=== PATIENT | female | born 1960 | race Caucasian/White ===

== ENCOUNTER 2019-05-14 17:00 | Outpatient (CLI) | payer OTHER, SELFPAY ==
--- NOTE | ~2019-05-14 | MM_ITS ---
EXAMINATION: MM screening [facility] BI w jayde HISTORY: Screening mammogram TECHNIQUE: Craniocaudal and mediolateral oblique 3-D tomosynthesis images were obtained and synthetic 2-D images were generated. CAD analysis was submitted and interpreted. COMPARISON: 10/31/2017, 10/27/2016, 08/26/2015 BREAST PARENCHYMAL COMPOSITION: There are scattered areas of fibroglandular density. FINDINGS: There is no evidence of suspicious mass, calcification, or architectural distortion to sugg est malignancy in either breast. There has been no suspicious interval change. IMPRESSION: 1. No mammographic evidence of malignancy. 2. Recommend routine screening mammography in one year. BI-RADS Category 1: Negative Reviewed, dictated and finalized at location A. IGN LANGUAGE PROFESSOR
== END 2019-05-14 17:01 | disposition home or self-care (01) ==
LOC: ANHIMG 17:04
PROVIDERS: PCP Internal Medicine; Visit Provider Student in an Organized Health Care Education/Training Program
DX: Z12.31 Encounter for screening mammogram for malignant neoplasm of breast (principal)
CPT/HCPCS: 77063; 77067

== ENCOUNTER 2020-09-30 16:16 | Outpatient (CLI) | payer BC, SELFPAY ==
--- NOTE | ~2020-09-30 | MM_ITS ---
EXAMINATION: MM screening [facility] w jayde HISTORY: Screening mammogram TECHNIQUE: Craniocaudal and mediolateral oblique 3-D tomosynthesis images were obtained and synthetic 2-D images were generated. CAD analysis was submitted and interpreted. COMPARISON: Numerous , 10/31/2017, 10/27/2016 bilateral digital screening mammogram examination s BREAST PARENCHYMAL COMPOSITION: There are scattered areas of fibroglandular density. FINDINGS: Stable mild fibroglandular asymmetry. Occasional bilateral benign calcifications. There is no evidence of suspicious mass, calcification, or architectural distortion to suggest malignancy in e ither breast. There has been no suspicious interval change. IMPRESSION: 1. No mammographic evidence of malignancy. 2. Recommend routine screening mammography in one year. BI-RADS Category 2: Benign finding(s). Reviewed, dictated and finalized at location A.
== END 2020-09-30 16:17 | disposition home or self-care (01) ==
LOC: ANHIMG 16:21
PROVIDERS: PCP Internal Medicine; Visit Provider Student in an Organized Health Care Education/Training Program
DX: Z12.31 Encounter for screening mammogram for malignant neoplasm of breast (principal)
CPT/HCPCS: 77063; 77067

== ENCOUNTER 2020-11-24 16:47 | Outpatient (CLI) | payer BC, SELFPAY ==
--- NOTE | ~2020-11-24 | DEXA_ITS ---
Bone Density Report Name: Polly Bacon Age: 60 Sex: Female Ethnicity: White Date of : 1960 Indication: postmenopausal; height loss; prior fracture; Referring Provider: Harmony Huffman Study: Bone densitometry was performed. Exam Date: November 24, 2020 Accession number: [id number] Bone Density: Region BMD T-score Z-score Classification AP Spine (L1-L4) 1.040 -0.1 1.3 Normal Femoral Neck (Left) 0.704 -1.3 0.0 Osteopenia Total Hip (Left) 0.948 0.1 1.0 Normal Total Hip Bilateral Avg 0.949 0.1 1.0 Normal Femoral Neck (Right) 0.729 -1.1 0.2 Osteopenia Total Hip (Right) 0.948 0.0 1.0 Normal World Health Organization criteria for BMD impression classify patients as: Normal (T-score at or above -1.0), Osteopenia (T-score between -1.0 and -2.5), or Osteoporosis (T-score at or below -2.5). 10-year Fracture Risk(1): Major Osteoporotic Fracture 13% Hip Fracture 0.9% Reported Risk Factors: [place] (), Neck BMD=0.704, BMI=29.9, previous fracture (1) FRAX(R) Version 3.08. Fracture probability calculated for an untreated patient. Fracture probability may be lower if the patient has received treatment. Previous Exams: Region Exam Age BMD T-score BMD Change BMD Change Date g/cm2 vs Baseline vs Previous Total Hip(Left) 11/24/2020 60 0.948 0.1 0.072(8.3%)* 0.052(5.8%)* 12/19/2016 56 0.897 -0.4 0.021(2.3%) 0.021(2.3%) 04/04/2014 54 0.876 -0.5 Total Hip(Right) 11/24/2020 60 0.948 0.0 0.076(8.8%)* 0.026(2.9%)# 12/19/2016 56 0.921 -0.2 0.050(5.7%)# 0.050(5.7%)# 04/04/2014 54 0.872 -0.6 *Denotes significance at 95% confidence level, LSC for Total Hip = 0.027 g/cm2 Clinical Information Provided by Patient: Has had a low trauma fracture Has used the following medications: HRT (i.e. estrogen/hormone therapy), Vitamin D, Calcium Patient maximum height was 67 Menopause Age: 52 No regular weight bearing exercise Drinks caffeinated beverages Onset of menses at age 14 Number of children 1 Impression: The patient has low bone mass, based on the Left Femoral Neck T-score. The patient has an estimated ten-year risk of hip fracture of 0.9% and an estimated ten-year risk of major fracture of 13%, based on the WHO FRAX algorithm. The patient has risk factors, including: previous fracture. No significant bone loss was observed. Discussion: BONE DENSITY IS LOW AT ONE OR MORE SKELETAL SITES. This patient's lowest T-score is low at one or more ske
== END 2020-11-24 16:48 | disposition home or self-care (01) ==
LOC: ANHIMG 16:49
PROVIDERS: PCP Internal Medicine; Visit Provider Student in an Organized Health Care Education/Training Program
DX: Z78.0 Asymptomatic menopausal state (principal); M85.851 Other specified disorders of bone density and structure, right thigh; M85.852 Other specified disorders of bone density and structure, left thigh
CPT/HCPCS: 77080

== ENCOUNTER 2022-05-03 16:41 | Outpatient (CLI) | payer BC, SELFPAY ==
--- NOTE | ~2022-05-03 | MM_ITS ---
EXAMINATION: MM screening [facility] w jayde HISTORY: Screening mammogram TECHNIQUE: Craniocaudal and mediolateral oblique 3-D tomosynthesis images were obtained and synthetic 2-D images were generated. CAD analysis was submitted and interpreted. COMPARISON: 09/30/2020, , 10/31/2017 bilateral screening mammogram examinations BREAST PARENCHYMAL COMPOSITION: There are scattered areas of fibroglandular density. FINDINGS: Minimal stable fibroglandular asymmetry consistent with prior bilateral reduction mammoplas ty. There is no evidence of suspicious mass, calcification, or architectural distortion to suggest ma lignancy in either breast. There has been no suspicious interval change. IMPRESSION: 1. No mammographic evidence of malignancy. 2. Recommend routine screening mammography in one year. BI-RADS Category 2: Benign finding(s). Reviewed, dictated and finalized at location A. CATION ADMINISTRATION PROFESSIONAL
== END 2022-05-03 16:42 | disposition home or self-care (01) ==
PROVIDERS: PCP Internal Medicine; Visit Provider Obstetrics & Gynecology
DX: Z12.31 Encounter for screening mammogram for malignant neoplasm of breast (principal)
CPT/HCPCS: 77063; 77067

== ENCOUNTER 2023-05-04 08:02 | Emergency (ER) | payer OTHER, SELFPAY ==
--- NOTE | 2023-05-04 08:10 | ED.URI ---
HPI - URI/Sore Throat General Chief Complaint: Upper Respiratory Infection Stated Complaint: cough Time Seen by Provider: 05/04/23 08:20 Source: patient, RN notes reviewed and old records reviewed Mode of arrival: ambulatory Limitations: no limitations History of Present Illness HPI Narrative: 63-year-old female presents to the [facility] with complaints of a cough for 7 weeks. No treatment prior Denies any chest pain, shortness of breath. Denies any fevers. Denies any URI symptoms at the beginning. MD elicited complaint: cough Treatments prior to arrival: none Related Data Home Medications Medication Instructions Recorded Confirmed estradiol 1 mg tablet 1 mg PO DAILY 04/11/19 11/10/22 melatonin 5 mg capsule mg PO 04/11/19 11/10/22 prasterone (dhea) 25 mg tablet 25 mg PO DAILY 04/11/19 11/10/22 (DHEA) progesterone micronized 100 mg 100 mg PO QAM 04/11/19 11/10/22 capsule testosterone 50 mg/5 gram (1 %) 1 packet transdermal DAILY 04/11/19 11/10/22 transdermal gel thyroid (pork) 48.75 mg tablet 48.75 mg PO DAILY 11/10/22 11/10/22 Allergies Allergy/AdvReac Type Severity Reaction Status Date / Time No Known Allergies Allergy Verified 05/04/23 08:21 Review of Systems Review of Systems: All systems reviewed & are unremarkable except as noted in HPI and below Constitutional: Constitutional: Reports no additional constitutional complaints Eyes: Eyes: Reports no additional eye complaints ENT: Reports system reviewed and no additional complaints, except as documented Cardiovascular: Cardiovascular: Reports no additional cardiovascular complaints, Denies chest pain and Denies dyspnea Respiratory: Respiratory: Reports as per HPI, Denies chest congestion, Reports cough and Denies dyspnea Gastrointestinal: Gastrointestinal: Reports no additional gastrointestinal complaints, Denies abdominal pain, Denies nausea and Denies vomiting Musculoskeletal: Musculoskeletal: Reports no additional musculoskeletal complaints Integumentary/Breasts: Skin/Breast: Reports system reviewed and no additional complaints, except as docu Neurologic: Reports system reviewed and no additional complaints, except as documented Psychiatric: Psychiatric: Reports no additional psychiatric complaints Allergic/Immunologic: Allergic/Immunologic: Reports no additional allergic/immunologic complaints PMFSH Past Medical History Medical History Elevated lipids Surgical History Surgical History History of bilateral breast reduction surgery History of section Family History Family History Other Family history of malignant neoplasm of ovary Family history of pancreatic cancer Social History Social History Smoking status: Never smoker Second hand tobacco smoke exposure: No Alcohol intake: current Substance use: never Lack of Transportation: No Lack of Food: Never True Current Housing: I Have Housing Concerned About Future Housing: No Difficulty Paying Gas/Electric Bills: No Difficulty Paying for Meds: No Currently Unemployed: No Education: Associate Degree Living arrangements: with family Occupation/Education: occupation Gender identity (if verbalized by the patient): Female Sexual Orientation (if Verbalized by the Patient): Straight or Heterosexual Spiritual care concerns: No Comments At the time of my signature, I reviewed and agree with the nursing past medical, surgical, social, and family history. There is no relevant family history pertinent to the patient complaint. Exam Const: General: cooperative, healthy appearing, comfortable, no acute distress, well developed, alert and well nourished Nutritional Appearance: well nourished Orientation/consciousness: pat
[2023-05-04 08:21] VITALS: BP 130/68; PULSE 85; RESP 18; TEMP 36.9; O2SAT 97
== END 2023-05-04 08:40 | disposition home or self-care (01) ==
PROVIDERS: Emergency Provider Nurse Practitioner
DX: J40 Bronchitis, not specified as acute or chronic (principal)
CPT/HCPCS: 99213; G0463

== ENCOUNTER 2024-01-11 08:17 | Outpatient (CLI) | payer OTHER, SELFPAY ==
--- NOTE | ~2024-01-11 | MM_ITS ---
EXAMINATION: MM screening [facility] w jayde HISTORY: Screening TECHNIQUE: Craniocaudal and mediolateral oblique 3-D tomosynthesis images were obtained and synthetic 2-D images were generated. CAD analysis was submitted and interpreted. COMPARISON: Comparison to multiple prior studies sequentially, with oldest reviewed study dated 03/2015. BREAST PARENCHYMAL COMPOSITION: Not dense: There are scattered areas of fibroglandular density. FINDINGS: There is no evidence of suspicious mass, calcification, or architectural distortion to sugg est malignancy in either breast. There has been no suspicious interval change. IMPRESSION: 1. No mammographic evidence of malignancy. 2. Recommend routine screening mammography in one year. BI-RADS Category 1: Negative Reviewed, dictated and finalized at location B.
== END 2024-01-11 08:18 | disposition home or self-care (01) ==
PROVIDERS: PCP Family Medicine; Visit Provider Obstetrics & Gynecology
DX: Z12.31 Encounter for screening mammogram for malignant neoplasm of breast (principal)
CPT/HCPCS: 77063; 77067

== ENCOUNTER 2024-01-22 12:59 | Outpatient (CLI) | payer OTHER, SELFPAY ==
--- NOTE | ~2024-01-22 | DEXA_ITS ---
Bone Density Report Name: ROSE URIBE Age: 63 Sex: Female Ethnicity: White Date of : 1960 Indication: postmenopausal; screening for osteoporosis; height loss; Referring Provider: YANET GONZALEZ Study: Bone densitometry was performed. Exam Date: January 22, 2024 Accession number: [id number] Bone Density: Region BMD T-score Z-score Classification AP Spine(L1-L4) 1.007 -0.4 1.2 Normal Femoral Neck (Left) 0.678 -1.5 -0.1 Osteopenia Total Hip (Left) 0.883 -0.5 0.6 Normal Femoral Neck (Right) 0.709 -1.3 0.1 Osteopenia Total Hip (Right) 0.871 -0.6 0.5 Normal Total Hip Mean 0.877 -0.6 0.6 Normal World Health Organization criteria for BMD impression classify patients as: Normal (T-score at or above -1.0), Osteopenia (T-score between -1.0 and -2.5), or Osteoporosis (T-score at or below -2.5). 10-year Fracture Risk(1): Major Osteoporotic Fracture 8.5% Hip Fracture 0.8% Reported Risk Factors: [place] (), Neck BMD=0.678, BMI=28.2 (1) FRAX(R) Version 3.08. Fracture probability calculated for an untreated patient. Fracture probability may be lower if the patient has received treatment. Previous Exams: Region Exam Age BMD T-score BMD Change BMD Change Date g/cm2 vs Baseline vs Previous AP Spine (L1-L4) 01/22/2024 63 1.007 -0.4 -0.033 (-3.1%) -0.033 (-3.1%) 11/24/2020 60 1.040 -0.1 Total Hip(Left) 01/22/2024 63 0.883 -0.5 -0.013 (-1.5%) -0.065 (-6.9%) 11/24/2020 60 0.948 0.1 0.052 (5.8%)* 0.052 (5.8%)* 12/19/2016 56 0.897 -0.4 Total Hip(Right) 01/22/2024 63 0.871 -0.6 -0.050 (-5.4%) -0.077 (-8.1%) 11/24/2020 60 0.948 0.0 0.026 (2.9%)# 0.026 (2.9%)# 12/19/2016 56 0.921 -0.2 *Denotes significance at 95% confidence level, LSC for AP Spine = 0.022 g/cm2, LSC for Total Hip = 0.027 g/cm2 # Denotes dissimilar scan types or analysis methods Clinical Information Provided by Patient: Has used the following medications: HRT (i.e. estrogen/hormone therapy), Vitamin D, Calcium Patient maximum height was 67.0 Menopause Age: 52 Does not regularly consume dairy products Drinks caffeinated beverages Onset of menses at age 14 Number of children 1 Impression: The patient has low bone mass, based on the Left Femoral Neck T-score. The patient has an estimated ten-year risk of hip fracture of 0.8% and an estimated ten-year risk of major fracture of 8.5%, based on the WHO FRAX algorithm. The BMD for the AP Spine (L1-L4) decreased, changing by -3.1% since the last DXA exam. The BMD for the Total Hip(Left) decreased, changing by -6.9% since the last DXA exam. Discussion: BONE DENSITY IS LOW AT ONE OR MORE SKELETAL SITES. This patient's lowest T-score is low at one or more skeletal sites. It meets the World Health Organization's (WHO) criteria for ?low bone mass? (T-score between -1.0 and -2.5). The patient's 10-year risk of fracture as calculated by FRAX is less than the threshold where pharmacological therapy is recommended by the National Osteoporosis Foundation (NOF). However, all treatment decisions require clinical judgment and consideration of individual patient factors, including patient preferences, comorbidities, previous drug use, risk factors not captured in the FRAX model (e.g., frailty, falls, vitamin D deficiency, increased bone turnover, interval significant decline in bone density) and possible under or overestimation of fracture risk by FRAX. The patient should follow a healthful lifestyle (good nutrition with adequate calcium and vitamin D, and appropriate weight-bearing exercise). Follow-Up: Consider repeating this study in 2 years to reassess this patient's status, or sooner if there is some new clinical indication. Reported by: SAYRA on 01/22/2024 1:42:00 PM. Reviewed, dictated and finalized at location AShad GÓMEZ
== END 2024-01-22 13:00 | disposition home or self-care (01) ==
LOC: ANHIMG 13:02
PROVIDERS: PCP Family Medicine; Visit Provider Obstetrics & Gynecology
DX: Z78.0 Asymptomatic menopausal state (principal); M85.852 Other specified disorders of bone density and structure, left thigh; M85.851 Other specified disorders of bone density and structure, right thigh
CPT/HCPCS: 77080

== ENCOUNTER 2024-04-10 08:30 | Emergency (ER) | payer OTHER, SELFPAY ==
--- NOTE | ~2024-04-10 | XR_ITS ---
EXAMINATION: XR shoulder RT min 2V DATE: 04/10/2024 09:17 INDICATION: Right shoulder injury post fall TECHNIQUE: AP internally and externally rotated, AP oblique externally rotated and transscapular Y vi ews of the right shoulder were obtained. COMPARISON: None FINDINGS: Normal alignment. No fracture at the right shoulder. There is a subtle irregular cortical contour al ellie the anterolateral right sixth rib which could represent an age-indeterminate fracture. Mild right acromioclavicular and glenohumeral osteoarthritis. Soft tissues are unremarkable. Visualized portio n of the lungs are clear with no pleural effusion or pneumothorax. IMPRESSION: 1. Mild right glenohumeral and acromial clavicular osteoarthritis with no acute osseous abnormality t he right shoulder. 2. Possible age-indeterminate fracture of the anterolateral right sixth rib. Correlate for point tend erness at this location. Reviewed, dictated and finalized at location B. MOUNTER IMPRESSION: 1. Mild right glenohumeral and acromial clavicular osteoarthritis with no acute osseous abnormality the right shoulder. 2. Possible age-indeterminate fracture of the anterolateral right sixth rib. Co rrelate for point tenderness at this location.
--- NOTE | ~2024-04-10 | CT_ITS ---
EXAMINATION: CT cervical spine wo con DATE: 04/10/2024 09:11 INDICATION: Neck injury post fall TECHNIQUE: Computed tomography (CT) of the cervical spine was performed without intravenous contrast. Automated exposure control and iterative reconstruction technique were employed. The dose-length pro duct was 340.88 mGy-cm. COMPARISON: None FINDINGS: Alignment is normal. Vertebral body heights are normal. No fracture. Mild osteoarthritis at the atlan toaxial articulation. Moderate disc height loss at C5-C6. Mild disc height loss at C3-C4 and C6-C7. M oderate to severe uncovertebral osteoarthritis and posterior disc osteophyte complexes which contribu te to mild central canal and bilateral neural foraminal stenosis at each of these levels. Multilevel mild to moderate bilateral cervical facet osteoarthritis. Mild bilateral neural foraminal stenosis at the 3 previously described levels. Cervical soft tissues are unremarkable. The visualized apices of the lungs are clear. IMPRESSION: 1. Moderate cervical spondylosis. No acute osseous abnormality. Reviewed, dictated and finalized at location B. N STOCK WASHER
--- NOTE | ~2024-04-10 | XR_ITS ---
EXAMINATION: XR elbow RT 2V DATE: 04/10/2024 09:48 INDICATION: Limited range of motion at the right elbow post fall TECHNIQUE: Anteroposterior and lateral views of the right elbow were obtained. COMPARISON: None. FINDINGS: Alignment is normal. No fracture or joint effusion. Joint spaces are normal. Small enthesophytes at t he medial and lateral epicondylar origins of the common flexor and extensor tendon wads respectively. Soft tissues are otherwise unremarkable. IMPRESSION: 1. No right elbow joint effusion or acute osseous abnormality. Reviewed, dictated and finalized at location B. MERCHANT
--- NOTE | ~2024-04-10 | CT_ITS ---
CT brain wo con Ordering provider: Jericho Santa History: 64 years Female with . fall/ injury . Comparison: None. Technique: CT of the head without contrast. Radiation reduction technique utilized. The dose-length product was 605.33 mGy-cm. FINDINGS: BRAIN PARENCHYMA AND CSF SPACES: No midline shift, mass effect or hemorrhage. The brain parenchyma a nd CSF spaces are otherwise normal. VISUALIZED PARANASAL SINUSES: Well aerated. MASTOIDS: Well aerated. BONES: The bones appear intact. SOFT TISSUES: Visualized nasopharynx is normal. Superficial soft tissues are normal. IMPRESSION: No acute intracranial findings. Reviewed, dictated and finalized at location A. S AND SERVICE ENGINEER
[2024-04-10 08:46] VITALS: BP 96/65; PULSE 60; RESP 17; TEMP 36.5; O2SAT 100
--- NOTE | 2024-04-10 09:32 | ED_ITS ---
HPI - Fall General Chief Complaint: Fall Stated Complaint: fall, hit head, R shoulder pain Time Seen by Provider: 04/10/24 09:07 History of Present Illness HPI Narrative: 64-year-old female presents to the ED with at bedside for a ground level mechanical fall that occurred prior to arrival. Patient states she slipped on ice this morning, landed on her right shoulder and elbow and hit her right eyebrow on the ground. She did not lose consciousness. She is not anticoagulated. She is reporting pain to the right shoulder and elbow and mildly to her neck. She has not taken anything for pain. Denies other injuries. Related Data Allergies Allergy/AdvReac Type Severity Reaction Status Date / Time No Known Allergies Allergy Verified 04/10/24 08:50 Review of Systems Review of Systems: All systems reviewed & are unremarkable except as noted in HPI and below PMFSH Past Medical History Medical History Colon polyp Osteopenia Elevated lipids Surgical History Surgical History H/O vein stripping History of section History of bilateral breast reduction surgery Family History Family History Other Family history of malignant neoplasm of ovary Family history of pancreatic cancer Social History Social History Smoking status: Never smoker Second hand tobacco smoke exposure: No Alcohol intake: current Substance use: never Lack of Transportation: No Lack of Food: Never True Current Housing: I Have Housing Concerned About Future Housing: No Difficulty Paying Gas/Electric Bills: No Difficulty Paying for Meds: No Currently Unemployed: No Education: Associate Degree Living arrangements: with family Occupation/Education: occupation Gender identity (if verbalized by the patient): Female Sexual Orientation (if Verbalized by the Patient): Straight or Heterosexual Spiritual care concerns: No Exam Narrative: GENERAL: Well-appearing, well-nourished, and in no acute distress. HEAD: Normocephalic EYES: PERRLA and EOMI. ENT: Nares clear, no rhinorrhea or epistaxis. Mucous membranes moist. NECK: Minimal tenderness throughout the cervical spine with no crepitus, step- offs or deformities BACK: No midline thoracolumbar spinous tenderness, crepitus, step-offs or deformities CHEST: Clear to auscultation. No respiratory distress. No tenderness to chest wall HEART: Regular rate and rhythm. No murmur heard. Normal peripheral pulses. ABDOMEN: Soft, nontender, nondistended, normal active bowel sounds. EXTREMITIES: Diffuse tenderness to the proximal right humerus with no overlying skin changes, limited anterior flexion, abduction and internal rotation secondary to pain, no obvious deformity, compartments are soft. Minimal tenderness diffusely to the right elbow with full active and passive range of motion. No tenderness remainder of extremity. Radial, median, axillary and ulnar nerves are intact. Radial pulse 2 +. No tenderness to BLE SKIN: Hematoma to the right eyebrow with tenderness NEURO: No focal deficits. Alert and oriented x3. Strength 5/5 in BUE and BLE. Sensation intact throughout. Cranial nerves 2-12 intact. Course Vital Signs Vital signs: Vital Signs Temperature 97.7 F 04/10/24 08:46 Pulse Rate 60 04/10/24 08:46 Respiratory Rate 17 04/10/24 08:46 Blood Pressure 96/65 L 04/10/24 08:46 Pulse Oximetry 100 04/10/24 08:46 Oxygen Delivery Room Air 04/10/24 08:46 Temperature 97.6 F 04/10/24 10:40 Pulse Rate 76 04/10/24 10:40 Respiratory Rate 16 04/10/24 10:40 Blood Pressure 110/68 04/10/24 10:40 Pulse Oximetry 100 04/10/24 10:40 Oxygen Delivery Room Air 04/10/24 08:46 MDM - Fall MDM Narrative Medical decision making narrative: 64-year-old female presents to the ED for a ground level mechanical fall that occurred prior to arrival. See HPI for further history. Exam is significant for the above. Patient is neurovascularly intact. CT brain shows no acute intracranial findings. CT cervical spine shows moderate cervical spondylosis with no acute osseous abnormality. X-ray of the shoulder shows mild right glenohumeral and acromioclavicular osteoarthritis with no acute osseous findings of the shoulder. There is possible age-indeterminate fracture of the anterior lateral right 6th rib. Patient has no tenderness over this region. X-ray of the elbow is unremarkable. Patient and at bedside were updated on workup. She is reporting significant right shoulder pain. She received Tylenol was placed in a right arm splint. Discussed supportive care and prevention of adhesive capsulitis, Tylenol/ibuprofen, Flexeril lidocaine patches for pain and follow-up with Orthopedics if her right shoulder is not improving in a week as she may need further workup and possible MRI for ligamentous injury. Return precautions provided. They are agreeable with the plan verbalized understanding. Discharged in stable condition. Discharge Plan Discharge Clinical Impression: Right shoulder strain Qualifiers: Encounter type: initial encounter Qualified Code(s): S46.911A - Strain of unspecified muscle, fascia and tendon at shoulder and upper arm level, right arm, initial encounter Strain of elbow, right Qualifiers: Encounter type: initial encounter Qualified Code(s): S56.911A - Strain of unspecified muscles, fascia and tendons at forearm level, right arm, initial encounter Acute cervical myofascial strain Qualifiers: Encounter type: initial encounter Qualified Code(s): S16.1XXA - Strain of muscle, fascia and tendon at neck level, initial encounter Contusion of eyebrow Qualifiers: Encounter type: initial encounter Laterality: right Qualified Code(s): S00.11XA - Contusion of right eyelid and periocular area, initial encounter Patient Disposition: Home, Self-Care Condition: Stable Instructions: Antibiotic Form, Head Injury (ED), Shoulder Pain (ED), Rotator Cuff Injury Exercises (DC) Additional Instructions: Please rest, use ice and make sure to move your shoulder few times throughout the day to prevent frozen shoulder as discussed. Take medications as directed. Follow-up with the orthopedic surgeon if your pain persists for 1 week. Return to the emergency department if he develops significantly worsening pain, numbness in the remainder of the extremity, or other concerning symptoms. Patient Language: Citizen Of [place] Prescriptions: New ibuprofen 800 mg tablet 800 mg PO TID PRN (Reason: pain) Qty: 20 0RF lidocaine 5 % adhesive patch,medicated 1 patch topical DAILY Qty: 15 0RF Rx Instructions: leave on most painful area for up to 12 hrs. do not use more than 1 patch in a 24-hour period. cyclobenzaprine 10 mg tablet 10 mg PO TID PRN (Reason: muscle spasm) Qty: 14 0RF acetaminophen 500 mg capsule 500 mg PO Q6H PRN (Reason: pain) Qty: 20 0RF No Action fluconazole [Diflucan] 200 mg tablet 200 mg PO ONCE Qty: 2 0RF Rx Instructions: repeat in three days nystatin-triamcinolone 100,000-0.1 unit/gram-% ointment 1 applic topical TID PRN (Reason: yeast rash) Qty: 60 0RF phentermine 30 mg capsule 30 mg PO DAILY Qty: 30 1RF Rx Instructions: must administer 2 hours after breakfast rosuvastatin 5 mg tablet 5 mg PO DAILY Qty: 30 2RF Follow-up/Referrals: Felicity Sow MD [Primary Care Provider] - Jose Carlos Pedroza MD [Physician] - Stand Alone Forms: Work/School Release IP
[2024-04-10] MEDS: ACETAMINOPHEN 500 MG TABLET 1000 MG PO (09:54)
[2024-04-10 10:29] VITALS: BP 105/91; PULSE 64
[2024-04-10] MEDS: CYCLOBENZAPRINE HCL 10 MG TABLET PO (10:32)
[2024-04-10] MEDS: LIDOCAINE 5% PATCH 1 PATCH TRANSDERM (10:33)
[2024-04-10 10:40] VITALS: BP 110/68; PULSE 76; RESP 16; TEMP 36.4; O2SAT 100
== END 2024-04-10 10:40 | disposition home or self-care (01) ==
PROVIDERS: Emergency Provider Physician Assistant; PCP Family Medicine
DX: S46.911A Strain of unspecified muscle, fascia and tendon at shoulder and upper arm level, right arm, initial encounter (principal); S56.911A Strain of unspecified muscles, fascia and tendons at forearm level, right arm, initial encounter; S16.1XXA Strain of muscle, fascia and tendon at neck level, initial encounter; S00.11XA Contusion of right eyelid and periocular area, initial encounter; W00.0XXA Fall on same level due to ice and snow, initial encounter
CPT/HCPCS: 70450; 72125; 73030; 73070; 99284; A4565; A9270

== ENCOUNTER 2024-04-25 09:43 | Outpatient (CLI) | payer OTHER, SELFPAY ==
--- NOTE | ~2024-04-25 | MR_ITS ---
EXAMINATION: MR shoulder RT wo con DATE: 04/25/2024 10:29 INDICATION: Unspecified injury of muscle and tendon positioned with right shoulder pain post fall 2 w eeks prior. TECHNIQUE: Magnetic resonance imaging (MRI) of the right shoulder was performed without intravenous c ontrast. Sequences included axial PD-weighted FS FSE, coronal oblique PD-weighted FS FSE, coronal obl ique T2-weighted FS FSE, sagittal PD-weighted FS FSE, and sagittal T1-weighted SE. COMPARISON: None. FINDINGS: Coracoacromial arch: The acromion undersurface is flat in morphology (type I). The coracoacromial ligament is normal. Mild acromioclavicular osteoarthritis. Rotator cuff: Moderate supraspinatus and severe infraspinatus tendinopathy. There is a full-thickness tear along th e superior and middle facet footplates of the supraspinatus and conjoined portion of the supraspinatu s and infraspinatus tendons. The tear measures approximately 2.5 cm AP along the greater tuberosity a nd 2.5 cm medial to lateral. The teres minor tendon is normal. Mild subscapularis tendinopathy withou t tear. Normal rotator cuff muscle bulk and signal. Biceps tendon, glenoid labrum and glenohumeral cartilage: Long head of the biceps tendon is normal. There is a small shallow tear along the articular side of t he 11:00 position of the posterior superior glenoid labrum. Glenohumeral cartilage is normal. Fluid: Small glenohumeral joint effusion which extends through the full-thickness rotator cuff tear to indic ate with a small amount fluid in the subacromial/subdeltoid bursa. No loose osteochondral bodies. Bones: Normal marrow signal with no edema, fracture or abnormal marrow replacing process. IMPRESSION: 1. Moderate to severe supraspinatus and displaced tendinopathy with moderate-sized full-thickness tea r of the entire supraspinatus and conjoined portion of the supraspinatus and infraspinatus tendons. 2. Very small shallow tear at the posterior superior glenoid labrum. Reviewed, dictated and finalized at location B. R DEALER IMPRESSION: 1. Moderate to severe supraspinatus and displaced tendinopathy with moderate-si zed full-thickness tear of the entire supraspinatus and conjoined portion of th e supraspinatus and infraspinatus tendons. 2. Very small shallow tear at the posterior superior glenoid labrum.
== END 2024-04-25 09:44 | disposition home or self-care (01) ==
LOC: MICIMG 09:44
PROVIDERS: PCP Family Medicine; Visit Provider Family Medicine
DX: S46.009A Unspecified injury of muscle(s) and tendon(s) of the rotator cuff of unspecified shoulder, initial encounter (principal); X58.XXXA Exposure to other specified factors, initial encounter; M75.101 Unspecified rotator cuff tear or rupture of right shoulder, not specified as traumatic
CPT/HCPCS: 73221

== ENCOUNTER 2024-05-10 10:59 | Outpatient (CLI) | payer OTHER, SELFPAY ==
--- OUTSIDE RECORDS SUMMARY | 2024-05-10 11:20 | XMS_ITS | Clinical Summary ---
Author Organization [facility] Address [address] [place] [address] Care Team Providers Care Stereotype Molder Name Role Phone Referral, Self Primary Care Provider Unavailabl e Allergies No known active allergies Medications calcium citrate/vitamin D3 (CITRACAL + D ORAL) Take 2 tablets by mouth every morning Active multivitamin with minerals capsule Take 3 capsules by mouth every morning Active phentermine 30 mg capsule Take 1 capsule (30 mg total) by mouth daily 08/01/2023 Active Active Problems Problem Noted Date Diagnosed Date Aftercare following surgery of the circulatory s ystem 08/03/2023 Varicose veins of both lower extremities with pa in 06/27/2023 Immunizations Name Administration Dates Next Due Influenza, Quadrivalent, Spl it, Preservative Free, Intramuscular 01/24/2023,12/22/2018 Tdap 02/07/2014 Surgical History Surgery Date Site/Laterality Comments SECTION 03/27/1983 - 03/26/1984 REDUCTION MAMMOPLASTY 03/27/1981 - 03/26/1982 Bilateral VEIN LIGATION 03/27/2012 - 03/26/2013 Medical History Medical History Date Comments Motion sickness Family History Medical History Relation Name Comments Anesthesia problems Neg Hx Social History Tobacco Use Types Packs/Day Years Used Date Smoking Tobacco: Never Passive Smoke Exposure: Never Smokeless Tobacco: Never AUDIT-C Answer Date Recorded Q1: How often do you have a drink containing alc ohol? Monthly or less 06/28/2023 Q2: How many drinks containi ng alcohol do you have on a typical day when you are drinking? 1 or 2 06/28/2023 Q3: How often do you have si x or more drinks on one occasion? Never 06/28/2023 Personal Safety Answer Date Recorded Have you ever been in or are you currently in a harmful physical or emotional relationship or is someone making you feel afraid or unsafe? Denies 07/28/2023 Comments No Sex and Gender Information Value Date Recorded Sex Assigned at Not on file Legal Sex Female 9:56 AM INTERPRETER AND TRANSLATOR Gender Identity Not on file Sexual Orientation Not on file Obstetrics History Last Filed Vital Signs Vital Sign Reading Time Taken Comments Blood Pressure 117/79 08/23/2023 2:56 PM CDT Pulse 92 08/23/2023 2:56 PM CDT Temperature 36.9 C (98.5 F) 08/23/2023 2:56 PM CDT Respiratory Rate 18 07/28/2023 3:25 PM CDT Oxygen Saturation 98% 08/23/2023 2:56 PM CDT Inhaled Oxygen Concentration - - Weight 80.2 kg (176 lb 12.8 oz) 08/23/2023 2:56 PM CDT Height 170.2 cm (5' 7 ) 08/23/2023 2:56 PM CDT Body Mass Index 27.69 08/23/2023 2:56 PM CDT Plan of Treatment Health Maintenance Due Date Last Done Comments Breast Cancer Screening-Mammogram 1961 Cervical Cancer Screening 1961 Colon Cancer Screening-Colonoscopy 1961 Depression Screening 1961 Hepatitis C Screening 1961 Hepatitis B Screening 1979 Regular Well Visit/Exam 18-64 1979 Zoster Vaccine (1 of 2) 2011 Covid-19 Vaccine ( season) 2023 02/26/2023, 03/11/2022, 10/08/2021, Additional history exists Influenza Vaccine (#1) 2023 01/24/2023, 2018 DTaP/Tdap/Td Vaccine (2 - Td or Tdap) 02/08/2024 02/07/2014 Pneumococcal vaccine <65 Aged Out No longer eligible based on patient's age to complete this topic Insurance [facility] PPO [facility] PPO Care Teams Stereotype Molder Relationship Specialty Start Date End Date Referral, Self PCP - General 04/24/23
--- OUTSIDE RECORDS SUMMARY | 2024-05-10 11:20 | XMS_ITS | Encounter Summary ---
Author Organization [facility] Address [address] [place] [address] Care Team Providers Care Flooring Machine Feeder Name Role Phone Unavailable Primary Care Provider Unavailabl e Encounter Details Date Type Department Care Team (Late st Contact Info) Description 05/30/2018 Lab Requisition [facility] Care DermPath Lab [address] [facility] [place] [address] Froy Reese MD [address] [place] [address] Social History Tobacco Use Types Packs/Day Years Used Date Smoking Tobacco: Never Assessed Sex and Gender Information Value Date Recorded Sex Assigned at Not on file Gender Identity Not on file Sexual Orientation Not on file documented as of this encounter Plan of Treatment Not on file documented as of this encounter Procedures Procedure Name Priority Date/Time Associated Diagnosis Comments DERMATOPATHOLOGY Routine 05/29/2018 12:0 0 AM ADDRESSER documented in this encounter Results * DERMATOPATHOLOGY (05/29/2018 12:00 AM ADDRESSER) Case Report Dermatopathology Report Case: [id number] Authorizing Provider: Froy Reese MD Collected: 05/29/2018 12:00 AM Pathologist: Regina Denton MD Received: 05/30/2018 11:46 AM Specimens: A) - Skin, left sup ant thigh B) - Skin, left lower ant thigh 9 1:37 PM ADDRESSER DERMATOPATHOLOGY LABORATORY Final Diagnosis Specimen A. SKIN, left sup ant thigh: LICHEN PLANUS-LIKE KERATOSIS (BENIGN LICHENOID KERATOSIS) (L82.1) Specimen B. SKIN, left lower ant thigh: SOLAR LENTIGO (L81.4) 1:37 PM [facility] DERMATOPATHOLOGY LABORATORY Clinical History A: R/O HAK, Madden's. B: R/O dys nevus, ISK. 1:37 PM [facility] DERMATOPATHOLOGY LABORATORY Gross Description Specimen A: Received is one formalin filled container labeled with the patient's name and designated left sup ant thigh. The specimen consists of a shave biopsy measuring [id number]. Jar 0. Specimen B: Received is one formalin filled container labeled with the patient's name and designated left lower ant thigh. The specimen consists of a shave biopsy measuring [id number]. Jar 0. 1:37 PM [facility] DERMATOPATHOLOGY LABORATORY Microscopic Description Specimen A. SKIN, left sup ant thigh: The epidermis is mildly acanthotic. There is a lichenoid infiltrate with vacuolar changes of basilar keratinocytes and scattered necrotic keratinocytes. Specimen B. SKIN, left lower ant thigh: There is orthokeratosis. There is a slight increase in epidermal thickness with lentiginous buds of hyperpigmented keratinocytes. The number of melanocytes is only mildly increased. In the dermis, there is basophilic degeneration of elastic fibers. 1:37 PM [facility] DERMATOPATHOLOGY LABORATORY Disclaimer An external and internal positive and negative controls are appropriate for the histochemical, immunohistochemical and immunofluorescence stain(s) in this case (if any), except where stated explicitly. The performance characteristics of the stain(s) cited in this report were developed and its performance characteristic determined by the Dermatopathology Laboratory at [facility], directed by Dr. Luis F Monge. These tests need not be, and therefore are not, approved by the [place] Food and Drug Administration. The tests are used for clinical purposes. Billing Codes Specimen Charges Stain Charges 39933 70514 1 1 1:37 PM [facility] DERMATOPATHOLOGY LABORATORY Embedded Images 1:37 PM [facility] DERMATOPATHOLOGY LABORATORY Pathology/Cytology TISSUE SPECIMEN FROM SKIN / Unknown 05/29/2018 05/30/2018 11:46 AM ADDRESSER Miscellaneous samples (specimen) TISSUE SPECIMEN FROM SKIN / Unknown 05/29/2018 05/30/2018 11:46 AM ADDRESSER Froy Reese MD LAB - PATHOLOGY/CYTO LOGY ORDERABLES DERMATOPATHOLOGY LABORATORY [facility] - Department of Dermatology [facility] 5th Floor Lab B [address] [phone] documented in this encounter Visit Diagnoses Not on filedocumented in this encounter
--- OUTSIDE RECORDS SUMMARY | 2024-05-10 11:20 | XMS_ITS | Encounter Summary ---
Author Organization [facility] Address [address] [place] [address] Care Team Providers Care Setup Operator Name Role Phone Unavailable Primary Care Provider Unavailabl e Encounter Details Date Type Department Care Team (Late st Contact Info) Description 04/19/2018 Lab Requisition [facility] Care DermPath Lab [address] [place] [address] Froy Reese MD [address] [place] [address] Social History Tobacco Use Types [...] Priority Date/Time Associated Diagnosis Comments DERMATOPATHOLOGY Routine 04/18/2018 12:0 0 AM WATER SOFTENER SERVICE SUPERVISOR documented in this encounter Results * DERMATOPATHOLOGY (04/18/2018 12:00 AM WATER SOFTENER SERVICE SUPERVISOR) Case Report Dermatopathology Report Case: [id number] Authorizing Provider: Froy Reese MD Collected: 04/18/2018 12:00 AM Pathologist: Regina Denton MD Received: 04/19/2018 02:16 PM Specimen: Skin, left upper back 9 3:40 PM WATER SOFTENER SERVICE SUPERVISOR DERMATOPATHOLOGY LABORATORY Final Diagnosis Specimen A. 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 3:40 PM [facility] DERMATOPATHOLOGY LABORATORY Gross Description Specimen A: Received is one formalin filled container labeled with the patient's name and designated left upper back. The specimen consists of a shave biopsy measuring [id number]. Jar 0. 3:40 PM [facility] DERMATOPATHOLOGY LABORATORY Microscopic Description Specimen A. SKIN, left upper back: Sections reveal parakeratosis, acanthosis and keratinocyte dysmaturation which is most prominent in the lower epidermis. Focal nests are present in the dermis. 3:40 PM [facility] DERMATOPATHOLOGY LABORATORY Disclaimer An external and internal positive and negative controls are appropriate for the histochemical, immunohistochemical and immunofluorescence stain(s) in this case (if any), except where stated explicitly. The performance characteristics of the stain(s) cited in this report were developed and its performance characteristic determined by the Dermatopathology Laboratory at [facility], directed by Dr. Luis F Monge. These tests need not be, and therefore are not, approved by the [place] Food and Drug Administration. The tests are used for clinical purposes. Billing Codes Specimen Charges Stain Charges 48492 1 3:40 PM WATER SOFTENER SERVICE SUPERVISOR DERMATOPATHOLOGY LABORATORY Embedded Images 3:40 PM [facility] DERMATOPATHOLOGY LABORATORY Pathology/Cytolog y TISSUE SPECIMEN FROM SKIN / Unknown 04/18/2018 04/19/2018 2:16 PM WATER SOFTENER SERVICE SUPERVISOR Froy Reese MD LAB - PATHOLOGY/CYTO LOGY ORDERABLES Performing Organization Address City/State/[facility] Co de Phone Number DERMATOPATHOLOGY LABORATORY [facility] - Department of Dermatology [address] [place] [address], 5th [place] [address], [facility] [place] [phone] documented in this encounter Visit Diagnoses Not on filedocumented in this encounter
--- OUTSIDE RECORDS SUMMARY | 2024-05-10 11:20 | XMS_ITS | Referral Summary ---
Author Organization Health system Address [address] [place] [address] Care Team Providers Care Geospatial Engineer Name Role Phone Referral, Self Primary Care [...] it, Preservative Free, Intramuscular 01/24/2023,12/22/2018 Tdap 02/07/2014 Social History Tobacco Use Types Packs/Day Years [...] on file Legal Sex Female 9:56 AM TIE LAYER Gender Identity Not on file Sexual Orientation Not on file Last Filed Vital Signs Vital Sign Reading [...] 08/23/2023 2:56 PM CDT Plan of Treatment Not on file Insurance [facility] PPO [facility] PPO Care Teams Geospatial Engineer Relationship Specialty Start Date End Date Referral, Self PCP - General 04/24/23
--- OUTSIDE RECORDS SUMMARY | 2024-05-10 11:20 | XMS_ITS | Encounter Summary ---
Author Organization [facility] Address [address] [place] [address] Care Team Providers Care Dietetics Teacher Name Role Phone Unavailable Primary Care Provider Unavailabl e Encounter Details Date Type Department Care Team (Late st Contact Info) Description 05/03/2018 Lab Requisition [facility] Care DermPath Lab [address] [facility] [place] [address] Froy Reese MD [address] [place] [address] Social History Tobacco Use Types [...] Priority Date/Time Associated Diagnosis Comments DERMATOPATHOLOGY Routine 05/02/2018 12:0 0 AM GINNER documented in this encounter Results * DERMATOPATHOLOGY (05/02/2018 12:00 AM GINNER) Case Report Dermatopathology Report Case: [id number] Authorizing Provider: Froy Reese MD Collected: 05/02/2018 12:00 AM Pathologist: Regina Denton MD Received: 05/03/2018 11:48 AM Specimen: Skin, left upper back 9 2:32 PM [facility] DERMATOPATHOLOGY LABORATORY Final Diagnosis Specimen A. 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 Previous Bx: [id number]. 2:32 PM [facility] DERMATOPATHOLOGY LABORATORY Gross Description Specimen A: Received is one formalin filled container labeled with the patient's name and designated left upper back.The specimen consists of an ellipse measuring [id number] and is oriented with the notch at the 12 o'clock position labeled on the requisition as notch 12 o'clock. The epidermal surface consists of a centrally located 4x4mm previous biopsy site. The 12 to 6 o'clock margin is inked green. The 6 o'clock to 12 o'clock margin is inked black. The 12 o'clock tip is submitted in cassette 1. The 6 o'clock tip is submitted in cassette 2. The remainder of the ellipse is serially sectioned and submitted in cassettes 3-4. Jar 0. 2:32 PM [facility] DERMATOPATHOLOGY LABORATORY Microscopic Description Specimen A. SKIN, left upper back: There are fibroblasts and collagen bundles oriented parallel to the skin surface. There are elongated blood vessels, some of which are oriented perpendicular to the skin surface. No residual squamous cell carcinoma is identified. 2:32 PM [facility] DERMATOPATHOLOGY LABORATORY Disclaimer An external and internal positive and negative controls are appropriate for the histochemical, immunohistochemical and immunofluorescence stain(s) in this case (if any), except where stated explicitly. The performance characteristics of the stain(s) cited in this report were developed and its performance characteristic determined by the Dermatopathology Laboratory at [facility], directed by Dr. Luis F Monge. These tests need not be, and therefore are not, approved by the [place] Food and Drug Administration. The tests are used for clinical purposes. Billing Codes Specimen Charges Stain Charges 87538 1 2:32 PM [facility] DERMATOPATHOLOGY LABORATORY Embedded Images 2:32 PM [facility] DERMATOPATHOLOGY LABORATORY Pathology/Cytolog y TISSUE SPECIMEN FROM SKIN / Unknown 05/02/2018 05/03/2018 11:48 AM GINNER Froy Reese MD LAB - PATHOLOGY/CYTO LOGY ORDERABLES DERMATOPATHOLOGY LABORATORY [facility] - Department of Dermatology [address] [facility], 5th Floor Lab [address] [phone] documented in this encounter Visit Diagnoses Not on filedocumented in this encounter
--- OUTSIDE RECORDS SUMMARY | 2024-05-10 11:20 | XMS_ITS | Patient Health Summary ---
Author Organization [facility] Address [address] [place] [address] Care Team Providers Care Diver Helper Name Role Phone Unavailable Primary Care Provider Unavailabl e Note from [facility],non-owned Affiliates and Associated Physician Practices is amultiple site organization consisting of ambulatory clinics and hospital sitesin [place], [place], [place] and [place]. This disclosure is being madepursuant to the Care Everywhere program and may not contain all information available regarding this patient. Last updated 17.[facility] Allergies No known active allergies Medications Be aware that medications may not be up to date on this document. Always verify current medications with the patient. No known medications Social History Tobacco Use Types Packs/Day Years Used Date Smoking Tobacco: Never Smokeless Tobacco: Never Sex and Gender Information Value Date Recorded Sex Assigned at Not on file Gender Identity Not on file Sexual Orientation Not on file Last Filed Vital Signs Vital Sign Reading Time Taken Comments Blood Pressure 116/70 05/08/2019 4:44 PM CHARGE AIDE Pulse 83 05/08/2019 4:44 PM CHARGE AIDE Temperature 36.8 C (98.2 F) 05/08/2019 4:44 PM CHARGE AIDE Respiratory Rate 16 05/08/2019 4:44 PM CHARGE AIDE Oxygen Saturation 98% 05/08/2019 4:44 PM CHARGE AIDE Inhaled Oxygen Concentration - - Weight 81.6 kg (180 lb) 05/08/2019 4:44 PM CHARGE AIDE Height 170.2 cm (5' 7 ) 05/08/2019 4:44 PM CHARGE AIDE Body Mass Index 28.19 05/08/2019 4:44 PM CHARGE AIDE Procedures * DERMATOPATHOLOGY(Performed 05/29/2018) * DERMATOPATHOLOGY(Performed 05/02/2018) * DERMATOPATHOLOGY(Performed 04/18/2018) Results * DERMATOPATHOLOGY (05/29/2018 12:00 AM CHARGE AIDE) Only the most recent of3 resultswithin the time period is included. Case Report Dermatopathology Report Case: [id number] Authorizing Provider: Froy Reese MD Collected: 05/29/2018 12:00 AM Pathologist: Regina Denton MD Received: 05/30/2018 11:46 AM Specimens: A) - Skin, left sup ant thigh B) - Skin, left lower ant thigh 1:37 PM [facility] DERMATOPATHOLOGY LABORATORY Final Diagnosis Specimen A. SKIN, left sup ant thigh: LICHEN PLANUS-LIKE KERATOSIS (BENIGN LICHENOID KERATOSIS) (L82.1) Specimen B. SKIN, left lower ant thigh: SOLAR LENTIGO (L81.4) 1:37 PM [facility] DERMATOPATHOLOGY LABORATORY Clinical History A: R/O HAK, Madden's. B: R/O dys nevus, ISK. 1:37 PM [facility] DERMATOPATHOLOGY LABORATORY Gross Description Specimen A: Received is one formalin filled container labeled with the patient's name and designated left sup ant thigh. The specimen consists of a shave biopsy measuring [id number]. Jar 0. Specimen B: Received is one formalin filled container labeled with the patient's name and designated left lower ant thigh. The specimen consists of a shave biopsy measuring [id number]. Jar 0. 1:37 PM [facility] DERMATOPATHOLOGY LABORATORY Microscopic Description Specimen [...] basophilic degeneration of elastic fibers. 1:37 PM [facility] DERMATOPATHOLOGY LABORATORY Disclaimer An external and internal positive and negative controls are appropriate for the histochemical, immunohistochemical and immunofluorescence stain(s) in this case (if any), except where stated explicitly. The performance characteristics of the stain(s) cited in this report were developed and its performance characteristic determined by the Dermatopathology Laboratory at [facility], directed by Dr. Luis F Monge. These tests need not be, and therefore are not, approved by the [place] Food and Drug Administration. The tests are used for clinical purposes. Billing Codes Specimen Charges Stain Charges 59643 67596 1 1 9 1:37 PM CHARGE AIDE DERMATOPATHOLOGY LABORATORY Embedded Images 9 1:37 PM CHARGE AIDE DERMATOPATHOLOGY LABORATORY Pathology/Cytology TISSUE SPECIMEN FROM SKIN / Unknown 05/29/2018 05/30/2018 11:46 AM CHARGE AIDE Miscellaneous samples (specimen) TISSUE SPECIMEN FROM SKIN / Unknown 05/29/2018 05/30/2018 11:46 AM CHARGE AIDE Froy Reese MD LAB - PATHOLOGY/CYTO LOGY ORDERABLES DERMATOPATHOLOGY LABORATORY [facility] - Department of Dermatology [address] [place] [address], 5[address] Floor Lab [address] [phone]
--- OUTSIDE RECORDS SUMMARY | 2024-05-10 11:20 | XMS_ITS | Clinical Summary ---
Author Organization [facility] Address [address] [place] [address] Care Team Providers Care Journeyman Electrician Pv Installer Name Role Phone Unavailable Primary Care Provider Unavailabl e Source Comments [facility] [employer],non-owned Affiliates and Associated Physician Practices is amultiple site organization consisting of ambulatory clinics and hospital sitesin [place], [place], [place] and [place]. This disclosure is being madepursuant to the Care Everywhere program and may not contain all information available regarding this patient. Last updated 17.[facility] [employer] Allergies No known active allergies Medications Be [...] Comments Blood Pressure 116/70 05/08/2019 4:44 PM PREFORMER [employer]ABR[employer] Pulse 83 05/08/2019 4:44 PM PREFORMER [employer]AB[employer] Temperature 36.8 C (98.2 F) 05/08/2019 4:44 PM PREFORMER [employer] Respiratory Rate 16 05/08/2019 4:44 PM PREFORMER [employer] Oxygen Saturation 98% 05/08/2019 4:44 PM PREFORMER [employer] Inhaled Oxygen Concentration - - Weight 81.6 kg (180 lb) 05/08/2019 4:44 PM PRE[employer]ER [employer] Height 170.2 cm (5' 7 ) 05/08/2019 4:44 PM PREFORMER [employer]AB[employer] Body Mass Index 28.19 05/08/2019 4:44 PM PREFORMER [employer] Plan of Treatment Health Maintenance Due Date Last Done Comments COLOGUARD (AGES 45-75) - COL ON CA SCREENING 1961 COLON MONITORING 1961 COLONOSCOPY - COLON CA SCREENING 1961 CT COLONOGRAPHY - COLON CA SCREENING 1961 Colorectal Cancer Screening 1961 FIT - COLON CA SCREENING 1961 FLEX SIG - COLON CA SCREENING 1961 LIPID TESTING 1961 MAMMOGRAM 1961 HIV SCREENING 1976 HEPATITIS C SCREENING 03/30/1979 DTAP/TDAP/TD VACCINES (1 - Tdap) 1980 PAP with HPV 1991 PNEUMOCOCCAL VACCINE 50+ (1 of 1 - PCV) 2011 ZOSTER VACCINE (1 of 2) 2011 SCREENING FOR DIABETES 05/08/2019 COVID-19 VACCINE (1 - 2023-2 5 season) 2023 INFLUENZA VACCINE (#1) 2023 DEPRESSION SCREENING 03/27/2024 Respiratory Syncytial Virus (RSV) Vaccine Pt: or over 60 yrs (1 - 1-dose 75+ series) 2036 HEPATITIS B VACCINE Aged Out No longe r eligible based on patient's age to complete this topic HIB VACCINE Aged Out No longer eligi ble based on patient's age to complete this topic HPV VACCINE Aged Out No longer eligi ble based on patient's age to complete this topic MENINGOCOCCAL (Group B) VACCINE Aged Out No longer eligible based on patient's age to complete this topic MENINGOCOCCAL VACCINE Aged Out No matt guevara eligible based on patient's age to complete this topic PNEUMOCOCCAL VACCINE Aged Out No long er eligible based on patient's age to complete this topic
--- OUTSIDE RECORDS SUMMARY | 2024-05-10 11:20 | XMS_ITS | Referral Summary ---
Author Organization [facility] Address [address] [place] [address] Care Team Providers Care Institutional Commodity Analyst Name Role Phone Unavailable Primary Care Provider Unavailabl e Source Comments [facility],non-owned Affiliates and Associated Physician Practices is amultiple site organization consisting of ambulatory clinics and hospital sitesin [place], [place], [place] and [place]. This disclosure is being madepursuant to the Care Everywhere program and may not contain all information available regarding this patient. Last updated 17.[facility] [employer] Allergies No known active allergies Medications Be [...] Comments Blood Pressure 116/70 05/08/2019 4:44 PM PATCH SANDER Pulse 83 05/08/2019 4:44 PM PATCH SANDER Temperature 36.8 C (98.2 F) 05/08/2019 4:44 PM PATCH SANDER Respiratory Rate 16 05/08/2019 4:44 PM PATCH SANDER Oxygen Saturation 98% 05/08/2019 4:44 PM PATCH SANDER Inhaled Oxygen Concentration - - Weight 81.6 kg (180 lb) 05/08/2019 4:44 PM PATCH SANDER Height 170.2 cm (5' 7 ) 05/08/2019 4:44 PM PATCH SANDER Body Mass Index 28.19 05/08/2019 4:44 PM PATCH SANDER Plan of Treatment Not on file
--- NOTE | 2024-05-10 14:35 | ECG_ITS ---
Test Date: 2024-05-10 14:56:40 Measurements Intervals [place] Rate: 76 P: 47 PA: 147 QRS: -19 QRSD: 74 T: 19 QT: 377 QTc: 424 Interpretive Statements SINUS RHYTHM LOW QRS VOLTAGE IN PRECORDIAL LEADS CONSIDER ANTERIOR INFARCT, AGE INDETERMINATE CONSIDER INFERIOR INFARCT, AGE INDETERMINATE BASELINE ARTIFACT- I, II, III, AVR, AVL, AVF ABNORMAL ECG No previous ECG available for comparison Electronically Signed On 05-10-2024 15:33:34 FISH FILLETER by Braulio Waggoner D.O.
== END 2024-05-10 11:00 | disposition home or self-care (01) ==
PROVIDERS: PCP Family Medicine; Visit Provider Orthopaedic Surgery
DX: S46.011A Strain of muscle(s) and tendon(s) of the rotator cuff of right shoulder, initial encounter (principal); E78.5 Hyperlipidemia, unspecified; Z01.818 Encounter for other preprocedural examination; X58.XXXA Exposure to other specified factors, initial encounter; R94.31 Abnormal electrocardiogram [ECG] [EKG]
CPT/HCPCS: 87081; 93005

== ENCOUNTER 2024-05-20 11:33 | Outpatient (RCR) | payer OTHER, SELFPAY ==
--- NOTE | 2024-05-20 14:30 | PTOPEVDC ---
Assessment and note entered by Dago Lane, PT Thank you for referring Polly Bacon to [facility].? An evaluation has been completed. No further treatment is needed. Evaluation Information Assessment Status Evaluation Diagnosis Strain of right rotator cuff S46.021A Onset 04/10/24 Subjective Information Patient reports that she had a fall on April 10 falling on ice. She was scheduled for surgery on 05/17/24 but was cancelled due to cardiac findings. Does not have a current tentative date for surgery reschedule. She is currently waiting on insurance approval for echocardiogram. Pain is mostly controlled at baseline in the mornings but tends to increase throughout the day. Pain was initially excruciating but is able to subside over time. Pain is still continuous. Reported Pain Level Pain Score 1: Self Report Assessment PT Clinical Summary Patient presents with all signs and symptoms consistent with major rotator cuff tear. Patient was originally intended to be post operative examination this date, but was delayed due to new onset of cardiac findings. Evaluation this date emphasized pre operative preparation including review of home active assisted stretching and introduction to post operative expectations per Dr Shad Pretty protocol. Plan of Care Treatment Frequency and Pre-operative visit only. Patient to be evaluated Duration following pending surgery.
== END 2024-05-20 16:58 | disposition home or self-care (01) ==
LOC: ANHPT 11:33
PROVIDERS: PCP Family Medicine; Visit Provider Orthopaedic Surgery
DX: S46.011A Strain of muscle(s) and tendon(s) of the rotator cuff of right shoulder, initial encounter (principal)
CPT/HCPCS: 97110; 97161

== ENCOUNTER 2024-06-04 10:05 | Outpatient (CLI) | payer OTHER, SELFPAY ==
--- NOTE | 2024-06-04 10:18 | ECHO_ITS ---
Patient Info Name: Polly Bacon Age: 64 years : 1960 Gender: Female Ht: 67 in Wt: 165 lbs BSA: 1.89 m2 HR: 72 bpm BP: 130 / 86 mmHg Technical Quality: Good Exam Date: 06/04/2024 10:24 AM Exam Location: Echo Lab Patient Status: Outpatient Admit Date: 06/04/2024 Staff Ordering Physician: Felicity Sow MD Consumer Electronic Retail Specialist: Elisa Stephen RDCS Attending Provider: Felicity Sow MD Referring Physician: Juanjose PIZARRO; Exam Type: CA echo doppler color flow Study Info Indications R94.31 - Abnormal electrocardiogram ECG EKG Complete two-dimensional, color flow and Doppler transthoracic echocardiogram is performed. Summary 1. Complete two-dimensional, color flow and Doppler transthoracic echocardiogram is performed. 2. Left ventricular chamber dimension is normal. 3. Left ventricular systolic function is normal, estimated at 65-70%. 4. The left ventricular diastolic function is normal. 5. E/e' 7 is not elevated. 6. Global longitudinal strain is normal at -20.2%. 7. There is trace aortic valve regurgitation. 8. No pulmonary hypertension, estimated pulmonary arterial systolic pressure is 29 mmHg. Left Ventricle E/e' 7 is not elevated. Global longitudinal strain is normal at -20.2%. Left ventricular chamber dimension is normal. Left ventricular systolic function is normal, estimated at 65-70%. The left ventricular diastolic function is normal. Right Ventricle Right ventricular systolic function is normal and with normal TAPSE 2.3 cm. Right ventricular chamber dimension is normal. Left Atria Left atrial chamber dimension is normal. Right Atria Right atrial chamber dimension is normal. Aortic Valve The aortic valve is trileaflet. There is no aortic valve stenosis. There is trace aortic valve regurgitation. Pulmonic Valve There is no pulmonic regurgitation. Mitral Valve There is no mitral valve stenosis. There is no mitral valve regurgitation. Tricuspid Valve There is no tricuspid valve regurgitation. No pulmonary hypertension, estimated pulmonary arterial systolic pressure is 29 mmHg. Pericardium/Pleural There is no pericardial effusion. Inferior Vena Cava Normal inferior vena cava with >50% collapse upon inspiration consistent with normal right atrial pressure, 5 mmHg. Aorta The aortic root size at the sinus of Valsalva is normal. Left Ventricular Outflow Tract Name Value Normal LVOT 2D LVOT Diameter 1.9 cm LVOT Doppler LVOT Peak Gradient 4 mmHg LVOT Mean Gradient 3 mmHg LVOT VTI 24 cm LVOT VTI/AV VTI Ratio 0.9 LVOT Stroke Volume 70 ml LVOT CO 4.8 l/min LVOT CI 2.5 l/min/m2 Pulmonic Valve Name Value Normal RVOT Doppler RVOT Peak Gradient 2 mmHg PV Doppler PV Peak Gradient 4 mmHg Mitral Valve Name Value Normal MV Doppler MV Decel [place] 411 cm/s2 MV PHT 46 ms MV Area (PHT) 4.8 cm2 4.0-5.0 MV Diastolic Function MV E Peak Velocity 65 cm/s MV A Peak Velocity 49 cm/s MV E/A 1.3 MV Decel Time 158 ms Tricuspid Valve Name Value Normal TV Regurgitation Doppler TR Peak Velocity 245 cm/s TR Peak Gradient 24 mmHg Estimated PAP/RSVP RA Pressure 5 mmHg <=5 PA Systolic Pressure 29 mmHg <36 RV Systolic Pressure 29 mmHg <36 Aorta Name Value Normal Ascending Aorta Ao Root Diameter (MM) 3.4 cm Ao Root Diam Index (MM) 1.8 cm/m2 Aortic Valve Name Value Normal AV Doppler AV Peak Velocity 135 cm/s AV Peak Gradient 7 mmHg AV Mean Gradient 4 mmHg AV VTI 27 cm AV Area (Cont Eq VTI) 2.6 cm2 >=3.0 AV Area (Cont Eq Mejia) 2.3 cm2 AV Regurgitation 2D LVOT Area 3.0 cm2 AV Regurgitation Doppler AR Decel Time 1,609 ms AR Decel [place] 213 cm/s2 AR PHT 467 ms Ventricles Name Value Normal LV Dimensions 2D/MM IVS Diastolic Thickness (2D) 0.8 cm 0.6-1.0 IVS Diastole Thickness (MM) 0.7 cm 0.6-0.9 LVID Diastole (2D) 3.8 cm 3.8-5.2 LVID Diastole (MM) 5.2 cm 3.8-5.2 LVIW Diastolic Thickness (2D) 0.8 cm 0.6-0.9 LVIW Diastolic Thickness (MM) 0.9 cm 0.6-0.9 LVID Systole (2D) 2.4 cm 2.2-3.5 LVID Systole (MM) 3.1 cm 2.2-3.5 LVOT Diameter 1.9 cm LV Mass (2D Cubed) 86.03 g 67.00-162.00 LV Mass Index (2D Cubed) 45 g/m2 43-95 Relative Wall Thickness (2D) 0.43 LV Mass (MM Cubed) 146.80 g 67.00-162.00 LV Mass Index (MM Cubed) 78 g/m2 43-95 Relative Wall Thickness (MM) 0.36 LV Fractional Shortening/Ejection Fraction 2D/MM LV Fractional Shortening (2D) 38 % 27-45 LV Fractional Shortening (MM) 40 % 27-45 LV EF (MM Teicholz) 70 % 54-74 LV EF (2D Teicholz) 69 % 54-74 LV Diastolic Volume (4C MOD) 60 ml LV EF (4C MOD) 65 % LV Diastolic Volume (2C MOD) 80 ml LV EF (2C MOD) 71 % LV Diastolic Volume (BP MOD) 70 ml 46-106 LV Diastolic Volume Index (BP MOD) 37 ml/m2 29-61 LV Systolic Volume (BP MOD) 22 ml 14-42 LV Systolic Volume Index (BP MOD) 12 ml/m2 8-24 LV EF (BP MOD) 68 % 54-74 LV Diastolic Length (4C) 8.0 cm LV Systolic Length (4C) 6.9 cm LV Stroke Volume (4C MOD) 39 ml Atria Name Value Normal LA Dimensions LA Dimension (MM) 3.5 cm 2.7-3.8 LA Volume (4C A-L) 38 ml LA Volume (BP A-L) 32 ml RA Dimensions RA Area (4C) 13.4 cm2 <=18.0 EchoPAC Name Value Normal AutoEF LVCO_BiP_Q (Dydi9PSC) 3.7 l/min LVEF_BiP_Q (Cuwx8WJT) 60 % LVSV_BiP_Q (Etif8CRF) 49 ml LVVED_BiP_Q (Fhfl8HQG) 81 ml LVVES_BiP_Q (Pscr2FHC) 32 ml HR_4Ch_Q (Hwig5KFT) 75 bpm LVCO_4Ch_Q (Vzhf4TST) 3.1 l/min LVEF_4Ch_Q (Edpi1MQL) 59 % LVLd_4Ch_Q (Kbad2LGG) 8.2 cm LVLs_4Ch_Q (Jurp5GKQ) 6.6 cm LVSV_4Ch_Q (Zbuy5QFT) 42 ml LVVED_4Ch_Q (Avno1XVL) 71 ml LVVES_4Ch_Q (Ltfn2DEZ) 29 ml HR_2Ch_Q (Rxxz8AYZ) 75 bpm LVCO_2Ch_Q (Wire4HUP) 4.3 l/min LVEF_2Ch_Q (Agvj1UUW) 62 % LVLd_2Ch_Q (Obvk5IEB) 8.4 cm LVLs_2Ch_Q (Vuuw6VFV) 6.8 cm LVSV_2Ch_Q (Fyzt8IRK) 57 ml LVVED_2Ch_Q (Ukyy1FJX) 93 ml LVVES_2Ch_Q (Wtti9SKY) 35 ml ZACK AA peak sys SL (AWMA) 17.3 % AAS peak sys SL (AWMA) 13.3 % AI peak sys SL (AWMA) 20.1 % AL peak sys SL (AWMA) 15.5 % AP peak sys SL (AWMA) 9.7 % peak sys SL (AWMA) 19.1 % AVC (AWMA) 372 ms BA peak sys SL (AWMA) 25.4 % BAS peak sys SL (AWMA) 17.8 % BI peak sys SL (AWMA) 21.6 % BL peak sys SL (AWMA) 31.2 % BP peak sys SL (AWMA) 27.0 % BS peak sys SL (AWMA) 13.7 % G peak SL(A2C) (AWMA) 21.1 % G peak SL(A4C) (AWMA) 20.6 % G peak SL(APLAX) (AWMA) 19.0 % G peak SL(Avg) (AWMA) 20.3 % MA peak sys SL (AWMA) 22.7 % MAS peak sys SL (AWMA) 21.4 % NC peak sys SL (AWMA) 17.4 % ML peak sys SL (AWMA) 21.3 % MP peak sys SL (AWMA) 22.1 % MS peak sys SL (AWMA) 18.6 % Report Signatures
--- OUTSIDE RECORDS SUMMARY | 2024-06-04 11:23 | XMS_ITS | Clinical Summary ---
Author Organization [facility] Address [address] [place] [address] Care Team Providers Care Bush And Vine Farmer Fruit Crops Name Role Phone Referral, Self Primary Care [...] on file Legal Sex Female 9:56 AM CLINICAL APPEALS RN Gender Identity Not on file Sexual Orientation [...] patient's age to complete this topic Insurance [facility] PPO [facility] P[facility] Care Teams Bush And Vine Farmer Fruit Crops Relationship Specialty Start Date End Date Referral, Self PCP - General 04/24/23
--- OUTSIDE RECORDS SUMMARY | 2024-06-04 11:23 | XMS_ITS | Referral Summary ---
Author Organization [facility] Address [address] [place] [address] Care Team Providers Care Amphibious Operations Officer Name Role Phone Unavailable Primary Care Provider Unavailabl e Source Comments [facility],non-owned Affiliates and Associated Physician Practices is amultiple site organization consisting of ambulatory clinics and hospital sitesin [place], [place], [place] and [place]. This disclosure is being madepursuant to the Care Everywhere program and may not contain all information available regarding this patient. Last updated 17.[facility] [email or web address] Allergies No known active allergies Medications Be [...] Comments Blood Pressure 116/70 05/08/2019 4:44 PM KNIFE CHANGER Pulse 83 05/08/2019 4:44 PM KNIFE CHANGER Temperature 36.8 C (98.2 F) 05/08/2019 4:44 PM KNIFE CHANGER Respiratory Rate 16 05/08/2019 4:44 PM KNIFE CHANGER Oxygen Saturation 98% 05/08/2019 4:44 PM KNIFE CHANGER Inhaled Oxygen Concentration - - Weight 81.6 kg (180 lb) 05/08/2019 4:44 PM KNIFE CHANGER Height 170.2 cm (5' 7 ) 05/08/2019 4:44 PM KNIFE CHANGER Body Mass Index 28.19 05/08/2019 4:44 PM KNIFE CHANGER Plan of Treatment Not on file
--- OUTSIDE RECORDS SUMMARY | 2024-06-04 11:23 | XMS_ITS | Encounter Summary ---
Author Organization [facility] Address [address] [facility] [place] [address] Care Team Providers Care Casing Flusher Name Role Phone Unavailable Primary Care Provider Unavailabl e Encounter Details Date Type Department Care Team (Late st Contact Info) Description 04/19/[address] [facility] D[facility] Lab [address] [facility] [place] [address] Froy Reese MD [address] [place] [address] Social History Tobacco Use Types [...] Comments DERMATOPATHOLOGY Routine 04/18/2018 12:0 0 AM GRINDER HAND documented in this encounter Results * DERMATOPATHOLOGY (04/18/2018 12:00 AM GRINDER HAND) Case Report Dermatopathology Report Case: [id number] Authorizing Provider: Froy Reese MD Collected: 04/18/2018 12:00 AM Pathologist: Regina Denton MD Received: 04/19/2018 02:16 PM Specimen: Skin, left upper back 9 3:40 PM GRINDER HAND DERMATOPATHOLOGY LABORATORY Final Diagnosis Specimen A. SKIN, left upper back: SUPERFICIAL (FOCALLY INVASIVE) SQUAMOUS CELL CARCINOMA ARISING IN AN ACTINIC KERATOSIS (C44.529) 9 3:40 PM GRINDER HAND DERMATOPATHOLOGY LABORATORY Clinical History R/O SCC. 3:40 PM [facility] DERMATOPATHOLOGY LABORATORY Gross Description Specimen A: Received is one formalin filled container labeled with the patient's name and designated left upper back. The specimen consists of a shave biopsy measuring 5f3l1hs. Jar 0. 3:40 PM [facility] DERMATOPATHOLOGY LABORATORY Microscopic Description Specimen A. SKIN, left upper back: Sections reveal parakeratosis, acanthosis and keratinocyte dysmaturation which is most prominent in the lower epidermis. Focal nests are present in the dermis. 3:40 PM [facility] DERMATOPATHOLOGY LABORATORY Disclaimer An external and internal positive and negative controls are appropriate for the histochemical, immunohistochemical and immunofluorescence stain(s) in this case (if any), except where stated explicitly. The performance characteristics of the stain(s) cited in this report were developed and its performance characteristic determined by the Dermatopathology Laboratory at [facility], directed by Dr. Luis F Monge. These tests need not be, and therefore are not, approved by the [place] Food and Drug Administration. The tests are used for clinical purposes. Billing Codes Specimen Charges Stain Charges 20134 1 3:40 PM GRINDER HAND DERMATOPATHOLOGY LABORATORY Embedded Images 3:40 PM [facility] DERMATOPATHOLOGY LABORATORY Pathology/Cytolog y TISSUE SPECIMEN FROM SKIN / Unknown 04/18/2018 04/19/2018 2:16 PM GRINDER HAND Froy Reese MD LAB - PATHOLOGY/CYTO LOGY ORDERABLES Performing Organization Address City/State/[facility] Co de Phone Number DERMATOPATHOLOGY LABORATORY [facility] - Department of Dermatology [address] [place] [address], [address]th [place] [address], [facility] [phone] documented in this encounter Visit Diagnoses Not on filedocumented in this encounter
--- OUTSIDE RECORDS SUMMARY | 2024-06-04 11:23 | XMS_ITS | Clinical Summary ---
Author Organization [facility] Address [address] [address] Care Team Providers Care Trend Investigator Name Role Phone Unavailable Primary Care Provider Unavailabl e Source Comments [facility],non-owned Affiliates and Associated Physician Practices is amultiple site organization consisting of ambulatory clinics and hospital sitesin [place], [place], [place] and [place]. This disclosure is being madepursuant to the Care Everywhere program and may not contain all information available regarding this patient. Last updated 17.[facility] Allergies No known active allergies Medications Be [...] Comments Blood Pressure 116/70 05/08/2019 4:44 PM BODY MAKER MACHINE SETTER Pulse 83 05/08/2019 4:44 PM BODY MAKER MACHINE SETTER Temperature 36.8 C (98.2 F) 05/08/2019 4:44 PM BODY MAKER MACHINE SETTER Respiratory Rate 16 05/08/2019 4:44 PM BODY MAKER MACHINE SETTER Oxygen Saturation 98% 05/08/2019 4:44 PM BODY MAKER MACHINE SETTER Inhaled Oxygen Concentration - - Weight 81.6 kg (180 lb) 05/08/2019 4:44 PM BODY MAKER MACHINE SETTER Height 170.2 cm (5' 7 ) 05/08/2019 4:44 PM BODY MAKER MACHINE SETTER Body Mass Index 28.19 05/08/2019 4:44 PM BODY MAKER MACHINE SETTER Plan of Treatment Health Maintenance Due Date [...]
--- OUTSIDE RECORDS SUMMARY | 2024-06-04 11:23 | XMS_ITS | Encounter Summary ---
Author Organization [facility] Address [address] [place] [address] Care Team Providers Care Singing Teacher Name Role Phone Unavailable Primary Care Provider Unavailabl e Encounter Details Date Type Department Care Team (Late st Contact Info) Description 05/30/2018 Lab Requisition [facility] Care DermPath Lab [address] [facility] [place] [address] Froy Reese MD [address] [place] [address] Social History Tobacco Use Types [...] Comments DERMATOPATHOLOGY Routine 05/29/2018 12:0 0 AM TRANSFER KNITTER documented in this encounter Results * DERMATOPATHOLOGY (05/29/2018 12:00 AM TRANSFER KNITTER) Case Report Dermatopathology Report Case: [id number] Authorizing Provider: Froy Reese MD Collected: 05/29/2018 12:00 AM Pathologist: Regina Denton MD Received: 05/30/2018 11:46 AM Specimens: A) - Skin, left sup ant thigh B) - Skin, left lower ant thigh 9 1:37 PM TRANSFER KNITTER DERMATOPATHOLOGY LABORATORY Final Diagnosis Specimen A. SKIN, left sup ant thigh: LICHEN PLANUS-LIKE KERATOSIS (BENIGN LICHENOID KERATOSIS) (L82.1) Specimen B. SKIN, left lower ant thigh: SOLAR LENTIGO (L81.4) 1:37 PM [facility] DERMATOPATHOLOGY LABORATORY Clinical History A: R/O HAK, Madden's. B: R/O dys nevus, ISK. 1:37 PM [facility] DERMATOPATHOLOGY LABORATORY Gross Description Specimen A: Received is one formalin filled container labeled with the patient's name and designated left sup ant thigh. The specimen consists of a shave biopsy measuring 2v0a9xl. Jar 0. Specimen B: Received is one formalin filled container labeled with the patient's name and designated left lower ant thigh. The specimen consists of a shave biopsy measuring 72l9m2kf. Jar 0. 1:37 PM [facility] DERMATOPATHOLOGY LABORATORY Microscopic Description Specimen [...] basophilic degeneration of elastic fibers. 1:37 PM [facility] DERMATOPATHOLOGY LABORATORY Disclaimer An external and internal positive and negative controls are appropriate for the histochemical, immunohistochemical and immunofluorescence stain(s) in this case (if any), except where stated explicitly. The performance characteristics of the stain(s) cited in this report were developed and its performance characteristic determined by the Dermatopathology Laboratory at [facility], directed by Dr. Luis F Monge. These tests need not be, and therefore are not, approved by the [place] Food and Drug Administration. The tests are used for clinical purposes. Billing Codes Specimen Charges Stain Charges 00362 45902 1 1 1:37 PM [facility] DERMATOPATHOLOGY LABORATORY Embedded Images 1:37 PM [facility] DERMATOPATHOLOGY LABORATORY Pathology/Cytology TISSUE SPECIMEN FROM SKIN / Unknown 05/29/2018 05/30/2018 11:46 AM TRANSFER KNITTER Miscellaneous samples (specimen) TISSUE SPECIMEN FROM SKIN / Unknown 05/29/2018 05/30/2018 11:46 AM TRANSFER KNITTER Froy Reese MD LAB - PATHOLOGY/CYTO LOGY ORDERABLES DERMATOPATHOLOGY LABORATORY [facility] - Department of Dermatology [facility] [facility] 5th Floor Lab B [address] [phone] documented in this encounter Visit Diagnoses Not on filedocumented in this encounter
--- OUTSIDE RECORDS SUMMARY | 2024-06-04 11:23 | XMS_ITS | Referral Summary ---
Author Organization [facility] Address [address] [place] [address] Care Team Providers Care Energy Trader Name Role Phone Referral, Self Primary Care [...] on file Legal Sex Female 9:56 AM TRAIN CALLER Gender Identity Not on file Sexual Orientation [...] Plan of Treatment Not on file Insurance [facility] PPO [facility] PPO Care Teams Energy Trader Relationship Specialty Start Date End Date Referral, Self PCP - General 04/24/23
--- OUTSIDE RECORDS SUMMARY | 2024-06-04 11:23 | XMS_ITS | Encounter Summary ---
Author Organization [facility] Address [address] [facility] [place] [address] Care Team Providers Care Industrial Rehabilitation Consultant Name Role Phone Unavailable Primary Care Provider Unavailabl e Encounter Details Date Type Department Care Team (Late st Contact Info) Description 05/03/2018 Lab Requisition [facility] Care DermPath Lab [address] [facility] [place] [address] Froy Reese MD [address] [place] [address] Social History Tobacco Use Types [...] Comments DERMATOPATHOLOGY Routine 05/02/2018 12:0 0 AM AGRICULTURAL ECONOMIST documented in this encounter Results * DERMATOPATHOLOGY (05/02/2018 12:00 AM AGRICULTURAL ECONOMIST) Case Report Dermatopathology Report Case: [id number] Authorizing Provider: Froy Reese MD Collected: 05/02/2018 12:00 AM Pathologist: Regina Denton MD Received: 05/03/2018 11:48 AM Specimen: Skin, left upper back 9 2:32 PM AGRICULTURAL ECONOMIST DERMATOPATHOLOGY LABORATORY Final Diagnosis Specimen A. 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 Previous Bx: [id number]. 2:32 PM [facility] DERMATOPATHOLOGY LABORATORY Gross Description Specimen A: Received is one formalin filled container labeled with the patient's name and designated left upper back.The specimen consists of an ellipse measuring 25l27b6nu and is oriented with the notch at [...] in cassettes 3-4. Jar 0. 2:32 PM [facility] DERMATOPATHOLOGY LABORATORY Microscopic Description Specimen A. SKIN, left upper back: There are fibroblasts and collagen bundles oriented parallel to the skin surface. There are elongated blood vessels, some of which are oriented perpendicular to the skin surface. No residual squamous cell carcinoma is identified. 2:32 PM [facility] DERMATOPATHOLOGY LABORATORY Disclaimer An external and internal positive and negative controls are appropriate for the histochemical, immunohistochemical and immunofluorescence stain(s) in this case (if any), except where stated explicitly. The performance characteristics of the stain(s) cited in this report were developed and its performance characteristic determined by the Dermatopathology Laboratory at [facility], directed by Dr. Luis F Monge. These tests need not be, and therefore are not, approved by the [place] Food and Drug Administration. The tests are used for clinical purposes. Billing Codes Specimen Charges Stain Charges 13891 1 2:32 PM [facility] DERMATOPATHOLOGY LABORATORY Embedded Images 2:32 PM [facility] DERMATOPATHOLOGY LABORATORY Pathology/Cytolog y TISSUE SPECIMEN FROM SKIN / Unknown 05/02/2018 05/03/2018 11:48 AM AGRICULTURAL ECONOMIST Froy Reese MD LAB - PATHOLOGY/CYTO LOGY ORDERABLES DERMATOPATHOLOGY LABORATORY [facility] - Department of Dermatology [address] [facility], 5th Floor Lab [address] [phone] documented in this encounter Visit Diagnoses Not on filedocumented in this encounter
--- OUTSIDE RECORDS SUMMARY | 2024-06-04 11:23 | XMS_ITS | Patient Health Summary ---
Author Organization [facility] Address [address] [place] [address] Care Team Providers Care Netbackup Administrator Name Role Phone Unavailable Primary Care Provider Unavailabl e Note from [facility],non-owned Affiliates and Associated Physician Practices is amultiple site organization consisting of ambulatory clinics and hospital sitesin [place], [place], [place] and [place]. This disclosure is being madepursuant to the Care Everywhere program and may not contain all information available regarding this patient. Last updated 17.[facility] Allergies No known active allergies Medications Be [...] Comments Blood Pressure 116/70 05/08/2019 4:44 PM KIER BOILER Pulse 83 05/08/2019 4:44 PM KIER BOILER Temperature 36.8 C (98.2 F) 05/08/2019 4:44 PM KIER BOILER Respiratory Rate 16 05/08/2019 4:44 PM KIER BOILER Oxygen Saturation 98% 05/08/2019 4:44 PM KIER BOILER Inhaled Oxygen Concentration - - Weight 81.6 kg (180 lb) 05/08/2019 4:44 PM KIER BOILER Height 170.2 cm (5' 7 ) 05/08/2019 4:44 PM KIER BOILER Body Mass Index 28.19 05/08/2019 4:44 PM KIER BOILER Procedures * DERMATOPATHOLOGY(Performed 05/29/2018) * DERMATOPATHOLOGY(Performed 05/02/2018) * DERMATOPATHOLOGY(Performed 04/18/2018) Results * DERMATOPATHOLOGY (05/29/2018 12:00 AM KIER BOILER) Only the most recent of3 resultswithin the time period is included. Case Report Dermatopathology Report Case: [id number] Authorizing Provider: Froy Reese MD Collected: 05/29/2018 12:00 AM Pathologist: Regina Denton MD Received: 05/30/2018 11:46 AM Specimens: A) - Skin, left sup ant thigh B) - Skin, left lower ant thigh 1:37 PM [facility] DERMATOPATHOLOGY LABORATORY Final Diagnosis Specimen A. SKIN, left sup ant thigh: LICHEN PLANUS-LIKE KERATOSIS (BENIGN LICHENOID KERATOSIS) (L82.1) Specimen B. SKIN, left lower ant thigh: SOLAR LENTIGO (L81.4) 1:37 PM [facility] DERMATOPATHOLOGY LABORATORY Clinical History A: R/O HAK, Madden's. B: R/O dys nevus, ISK. 1:37 PM [facility] DERMATOPATHOLOGY LABORATORY Gross Description Specimen A: Received is one formalin filled container labeled with the patient's name and designated left sup ant thigh. The specimen consists of a shave biopsy measuring 3u6k1ky. Jar 0. Specimen B: Received is one formalin filled container labeled with the patient's name and designated left lower ant thigh. The specimen consists of a shave biopsy measuring 84f3s4fx. Jar 0. 1:37 PM [facility] DERMATOPATHOLOGY LABORATORY Microscopic Description [...] basophilic degeneration of elastic fibers. 1:37 PM [facility] DERMATOPATHOLOGY LABORATORY Disclaimer An external and internal positive and negative controls are appropriate for the histochemical, immunohistochemical and immunofluorescence stain(s) in this case (if any), except where stated explicitly. The performance characteristics of the stain(s) cited in this report were developed and its performance characteristic determined by the Dermatopathology Laboratory at [facility], directed by Dr. Luis F Monge. These tests need not be, and therefore are not, approved by the [place] Food and Drug Administration. The tests are used for clinical purposes. Billing Codes Specimen Charges Stain Charges 57681 35377 1 1 9 1:37 PM KIER BOILER DERMATOPATHOLOGY LABORATORY Embedded Images 9 1:37 PM KIER BOILER DERMATOPATHOLOGY LABORATORY Pathology/Cytology TISSUE SPECIMEN FROM SKIN / Unknown 05/29/2018 05/30/2018 11:46 AM KIER BOILER Miscellaneous samples (specimen) TISSUE SPECIMEN FROM SKIN / Unknown 05/29/2018 05/30/2018 11:46 AM KIER BOILER Froy Reese MD LAB - PATHOLOGY/CYTO LOGY ORDERABLES DERMATOPATHOLOGY LABORATORY [facility] - Department of Dermatology [address] [place] [address], 5th Floor Lab [address] [phone]
== END 2024-06-04 10:06 | disposition home or self-care (01) ==
PROVIDERS: PCP Family Medicine; Visit Provider Family Medicine
DX: R94.31 Abnormal electrocardiogram [ECG] [EKG] (principal)
CPT/HCPCS: 93306

== ENCOUNTER 2024-06-13 01:16 | Day surgery (SDC) | payer OTHER, SELFPAY ==
[2024-05-08 08:50] VITALS: BMI 25.9
--- NOTE | 2024-05-08 08:51 | PC.NURSE ---
Report to the Outpatient Waiting Room, entrance under the green pavilion located off [facility], at time _1030_ on date _[id number]_. Planned Procedure Time: _1230_.? Time changes happen often and if your time is changed the preop area will call you the afternoon before. - You and your visitor will be asked to self-screen and do not enter if you have any COVID symptoms. Please call surgeon if you need to reschedule. - A mask is optional within the hospital at this time. Patients may have clear liquids (water, carbonated beverages, clear teas, apple juice) until 3 hours prior to surgery with a maximum of 20 ounces. - No food from midnight until time of surgery and no smoking, or chewing tobacco (or any form of nicotine). No chewing gum, candy or mints. Take only the following medications with a SIP of water on the morning of surgery: ___Acetaminophen if needed for pain.____ DO NOT STOP ANY OF YOUR OTHER PRESCRIPTION MEDICATIONS PRIOR TO SURGERY EXCEPT THE FOLLOWING Hold all vitamins and supplements for 3 days per anesthesiologist. Medications to discontinue per physician ____Ibuprofen____ Date to take last mhfe___[phone]____ Please no make-up, nail austrian, hairspray, perfume, deodorant, or body powder the day of surgery.? No jewelry (including any body piercings) or valuables the day of surgery, leave them at home.? Please take a shower or bath the night before, or the morning of, surgery with an antibacterial soap.? Wear comfortable, loose fitting clothing.? - Jewelry must be removed prior to entering the operating room.? Rings and piercings that are not removed may be cut off. - The hospital will not accept responsibility for valuables.? - Please leave all valuables, including medications, at home the day of surgery. If you are going home after surgery, a licensed backhaul driver must drive you home.? - NO public transportation without another adult if you receive anesthesia. - We recommend that an adult stay with you for 24 hours following discharge. - We also recommend that you do not drive, make important decision, drink alcoholic beverages, or take any drugs that were not prescribed by your health care provider for at least 24 hours after your discharge time. Follow any additional instructions given to you from your surgeon. Telephone instructions given to __Tracy___and asked if any additional questions and then verbalized understanding. Patient advised to call surgeon office or pre surgery nurse liaison [phone] if any additional questions.
--- NOTE | 2024-05-13 12:00 | PM.IMHP ---
H&P: HPI History of Present Illness Date/Time: 05/13/24 12:00 Chief Complaint: Acute traumatic tear right rotator cuff tendon. Narrative: 64-year-old female patient Dr. Sow who presents today for arthroscopy of her right shoulder with mini open rotator cuff repair, proceed as indicated. Patient fell on April 10 while at work. She is not exactly sure why she fell but it happened very quickly and when she landed use on her right side. She had immediate severe pain in the anterior superior right shoulder. She was taking the emergency room immediately had x-rays of the shoulder and elbow which show no evidence of fracture. She subsequently had an MRI scan done from her primary care doctor on 04/18 which showed a retracted full-thickness tear involving the entire with of the supraspinatus tendon and the upper portion of the infraspinatus. Patient was seen on 04/[address] Carrington, a review the MRI with the patient. Given the patient's young age and the size of the tear the recommended that these be fixed surgically. Patient would like to proceed with repair and presents today for that. Review of Systems Review of Systems: All systems reviewed & are unremarkable except as noted in HPI and below PMFSH Past Medical History Medical History Colon polyp Osteopenia Elevated lipids Surgical History Surgical History H/O vein stripping History of section History of bilateral breast reduction surgery Family History Family History Other Family history of malignant neoplasm of ovary Family history of pancreatic cancer Social History Social History (Updated 04/30/24 @ 13:37 by Altagracia Mckoy CMA) Smoking status: Never smoker Second hand tobacco smoke exposure: No Alcohol intake: current Substance use: never Do You Feel Safe in your Home?: Yes Lack of Transportation: No Lack of Food: Never True Current Housing: I Have Housing Concerned About Future Housing: No Difficulty Paying Gas/Electric Bills: No Difficulty Paying for Meds: No Currently Unemployed: No Education: Associate Degree Difficulty w/ Childcare or Family Care: No Living arrangements: with family Occupation/Education: occupation Gender identity (if verbalized by the patient): Female Sexual Orientation (if Verbalized by the Patient): Straight or Heterosexual Spiritual care concerns: No Meds Home Medications and Allergies Home Medications ?Medication ?Instructions ?Recorded ?Confirmed ?Type acetaminophen 500 mg capsule 500 mg PO Q6H PRN pain #20 caps 04/10/24 05/08/24 Rx ibuprofen 800 mg tablet 800 mg PO TID PRN pain #20 tabs 04/10/24 05/08/24 Rx cyclobenzaprine 10 mg tablet 10 mg PO TID PRN muscle spasm #30 04/22/24 05/08/24 Rx tabs progesterone micronized 100 mg 100 mg PO DAILY 05/06/24 05/08/24 History capsule rosuvastatin 5 mg tablet 5 mg PO DAILY #30 tabs 05/12/24 Rx Allergies Allergy/AdvReac Type Severity Reaction Status Date / Time No Known Allergies Allergy Verified 05/08/24 08:41 Exam Narrative: 64-year-old female alert pleasant. She is 5 ft 6 170 lb BMI is 27.1. Active elevation of the right shoulder is to 65. Passive elevation is to 145. External rotation is 60 internal rotation to L2. Moderately severe weakness with abduction as well as external rotation to the right arm. Subscap liftoff is intact negative abdominal compression test. 2+ radial pulse. No numbness or tingling in the right arm. Biceps has normal strength and normal contour. Neck range of motion is full without discomfort. Resp: Auscultation: clear to auscultation bilaterally Cardio: Rate: regular rate Rhythm: regular rhythm Assessment and Plan Assessment and plan (1) Traumatic complete tear of right rotator cuff: Qualifiers: Encounter type: initial encounter Qualified Code(s): S46.011A - Strain of muscle(s) and tendon(s) of the rotator cuff of right shoulder, initial encounter Code(s): S46.011A - Strain of muscle(s) and tendon(s) of the rotator cuff of right shoulder, initial encounter Status: Acute Plan 64-year-old female who has had an acute traumatic rotator cuff tear right shoulder. Given the patient's young age it was recommended to her that this is going to be best treated surgically. Surgical procedures well as the risks and complications were discussed in detail all questions were answered and patient would like to proceed. She will see primary care doctor for pre-surgical clearance. She will avoid any aspirin ibuprofen products 1 week prior to surgery.
--- OUTSIDE RECORDS SUMMARY | 2024-05-17 00:09 | XMS_ITS | Clinical Summary ---
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
--- OUTSIDE RECORDS SUMMARY | 2024-05-17 00:09 | XMS_ITS | Patient Health Summary ---
Author Organization [facility] [employer] Address [address] [place] [address] Care Team Providers Care Food Editor Name Role Phone Unavailable Primary Care Provider Unavailabl e Note from [facility],non-owned Affiliates and Associated Physician Practices is amultiple site organization consisting of ambulatory clinics and hospital sitesin [place], [place], [place] and [place]. This disclosure is being madepursuant to the Care Everywhere program and may not contain all information available regarding this patient. Last updated 17.[facility] [employer] Allergies No known active allergies Medications Be [...] Comments Blood Pressure 116/70 05/08/2019 4:44 PM MERCHANDISING CONSULTANT Pulse 83 05/08/2019 4:44 PM MERCHANDISING CONSULTANT Temperature 36.8 C (98.2 F) 05/08/2019 4:44 PM MERCHANDISING CONSULTANT Respiratory Rate 16 05/08/2019 4:44 PM MERCHANDISING CONSULTANT Oxygen Saturation 98% 05/08/2019 4:44 PM MERCHANDISING CONSULTANT Inhaled Oxygen Concentration - - Weight 81.6 kg (180 lb) 05/08/2019 4:44 PM MERCHANDISING CONSULTANT Height 170.2 cm (5' 7 ) 05/08/2019 4:44 PM MERCHANDISING CONSULTANT Body Mass Index 28.19 05/08/2019 4:44 PM MERCHANDISING CONSULTANT Procedures * DERMATOPATHOLOGY(Performed 05/29/2018) * DERMATOPATHOLOGY(Performed 05/02/2018) * DERMATOPATHOLOGY(Performed 04/18/2018) Results * DERMATOPATHOLOGY (05/29/2018 12:00 AM MERCHANDISING CONSULTANT) Only the most recent of3 resultswithin the time period is included. Case Report Dermatopathology Report Case: [id number] Authorizing Provider: Froy Reese MD Collected: 05/29/2018 12:00 AM Pathologist: Regina Denton MD Received: 05/30/2018 11:46 AM Specimens: A) - Skin, left sup ant thigh B) - Skin, left lower ant thigh 1:37 PM [facility] DERMATOPATHOLOGY LABORATORY Final Diagnosis Specimen A. SKIN, left sup ant thigh: LICHEN PLANUS-LIKE KERATOSIS (BENIGN LICHENOID KERATOSIS) (L82.1) Specimen B. SKIN, left lower ant thigh: SOLAR LENTIGO (L81.4) 1:37 PM [facility] DERMATOPATHOLOGY LABORATORY Clinical History A: R/O HAK, Madden's. B: R/O dys nevus, ISK. 1:37 PM [facility] DERMATOPATHOLOGY LABORATORY Gross Description Specimen A: Received is one formalin filled container labeled with the patient's name and designated left sup ant thigh. The specimen consists of a shave biopsy measuring [id number]. Jar 0. Specimen B: Received is one formalin filled container labeled with the patient's name and designated left lower ant thigh. The specimen consists of a shave biopsy measuring [id number]. Jar 0. 1:37 PM [facility] DERMATOPATHOLOGY LABORATORY Microscopic Description Specimen A. [...] basophilic degeneration of elastic fibers. 1:37 PM [facility] DERMATOPATHOLOGY LABORATORY Disclaimer An external and internal positive and negative controls are appropriate for the histochemical, immunohistochemical and immunofluorescence stain(s) in this case (if any), except where stated explicitly. The performance characteristics of the stain(s) cited in this report were developed and its performance characteristic determined by the Dermatopathology Laboratory at [facility], directed by Dr. Luis F Monge. These tests need not be, and therefore are not, approved by the [place] Food and Drug Administration. The tests are used for clinical purposes. Billing Codes Specimen Charges Stain Charges 32209 60909 1 1 9 1:37 PM MERCHANDISING CONSULTANT DERMATOPATHOLOGY LABORATORY Embedded Images 9 1:37 PM MERCHANDISING CONSULTANT DERMATOPATHOLOGY LABORATORY Pathology/Cytology TISSUE SPECIMEN FROM SKIN / Unknown 05/29/2018 05/30/2018 11:46 AM MERCHANDISING CONSULTANT Miscellaneous samples (specimen) TISSUE SPECIMEN FROM SKIN / Unknown 05/29/2018 05/30/2018 11:46 AM MERCHANDISING CONSULTANT Froy Reese MD LAB - PATHOLOGY/CYTO LOGY ORDERABLES DERMATOPATHOLOGY LABORATORY [facility] - Department of Dermatology [address] [place] [address], 5th Floor Lab [address] [phone]
--- OUTSIDE RECORDS SUMMARY | 2024-05-17 00:09 | XMS_ITS | Encounter Summary ---
Author Organization [facility] Address [address] [place] [address] Care Team Providers Care Paper Sorter And Counter Name Role Phone Unavailable Primary Care Provider Unavailabl e Encounter Details Date Type Department Care Team (Late st Contact Info) Description 04/19/2018 Lab Requisition [facility] Care DermPath Lab [address] [place] [address] Froy Reese MD [address] [place] [address] Social History Tobacco Use Types [...] Comments DERMATOPATHOLOGY Routine 04/18/2018 12:0 0 AM CONVENIENCE STORE MANAGER documented in this encounter Results * DERMATOPATHOLOGY (04/18/2018 12:00 AM CONVENIENCE STORE MANAGER) Case Report Dermatopathology Report Case: [id number] Authorizing Provider: Froy Reese MD Collected: 04/18/2018 12:00 AM Pathologist: Regina Denton MD Received: 04/19/2018 02:16 PM Specimen: Skin, left upper back 9 3:40 PM CONVENIENCE STORE MANAGER DERMATOPATHOLOGY LABORATORY Final Diagnosis Specimen A. 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 3:40 PM [facility] DERMATOPATHOLOGY LABORATORY Gross Description Specimen A: Received is one formalin filled container labeled with the patient's name and designated left upper back. The specimen consists of a shave biopsy measuring [id number]. Jar 0. 3:40 PM [facility] DERMATOPATHOLOGY LABORATORY Microscopic Description Specimen A. SKIN, left upper back: Sections reveal parakeratosis, acanthosis and keratinocyte dysmaturation which is most prominent in the lower epidermis. Focal nests are present in the dermis. 3:40 PM [facility] DERMATOPATHOLOGY LABORATORY Disclaimer An external and internal positive and negative controls are appropriate for the histochemical, immunohistochemical and immunofluorescence stain(s) in this case (if any), except where stated explicitly. The performance characteristics of the stain(s) cited in this report were developed and its performance characteristic determined by the Dermatopathology Laboratory at [facility], directed by Dr. Luis F Monge. These tests need not be, and therefore are not, approved by the [place] Food and Drug Administration. The tests are used for clinical purposes. Billing Codes Specimen Charges Stain Charges 36249 1 3:40 PM CONVENIENCE STORE MANAGER DERMATOPATHOLOGY LABORATORY Embedded Images 3:40 PM [facility] DERMATOPATHOLOGY LABORATORY Pathology/Cytolog y TISSUE SPECIMEN FROM SKIN / Unknown 04/18/2018 04/19/2018 2:16 PM CONVENIENCE STORE MANAGER Froy Reese MD LAB - PATHOLOGY/CYTO LOGY ORDERABLES Performing Organization Address City/State/[facility] Co de Phone Number DERMATOPATHOLOGY LABORATORY [facility] - Department of Dermatology [address] [place] [address], [address] [place] [address], [facility] [phone] documented in this encounter Visit Diagnoses Not on filedocumented in this encounter
--- OUTSIDE RECORDS SUMMARY | 2024-05-17 00:09 | XMS_ITS | Referral Summary ---
Author Organization [facility] Address [address] [place] [address] Care Team Providers Care Help Desk Support Name Role Phone Unavailable Primary Care Provider Unavailabl e Source Comments [facility],non-owned Affiliates and Associated Physician Practices is amultiple site organization consisting of ambulatory clinics and hospital sitesin [place], [place], [place]. This disclosure is being madepursuant to the Care Everywhere program and may not contain all information available regarding this patient. Last updated 17.[facility] [employer] Allergies No known active allergies Medications Be [...] Comments Blood Pressure 116/70 05/08/2019 4:44 PM SHANK TURNER Pulse 83 05/08/2019 4:44 PM SHANK TURNER Temperature 36.8 C (98.2 F) 05/08/2019 4:44 PM SHANK TURNER Respiratory Rate 16 05/08/2019 4:44 PM SHANK TURNER Oxygen Saturation 98% 05/08/2019 4:44 PM SHANK TURNER Inhaled Oxygen Concentration - - Weight 81.6 kg (180 lb) 05/08/2019 4:44 PM SHANK TURNER Height 170.2 cm (5' 7 ) 05/08/2019 4:44 PM SHANK TURNER Body Mass Index 28.19 05/08/2019 4:44 PM SHANK TURNER Plan of Treatment Not on file
--- OUTSIDE RECORDS SUMMARY | 2024-05-17 00:09 | XMS_ITS | Encounter Summary ---
Author Organization [facility] Address [address] [place] [address] Care Team Providers Care Project/Production Manager Imaging Name Role Phone Unavailable Primary Care Provider Unavailabl e Encounter Details Date Type Department Care Team (Late st Contact Info) Description 05/03/2018 Lab Requisition [facility] Care DermPath Lab [address] [address] Froy Reese MD [address] [place] [address] Social History Tobacco Use Types [...] Comments DERMATOPATHOLOGY Routine 05/02/2018 12:0 0 AM PHYSICAL SECURITY ENGINEER documented in this encounter Results * DERMATOPATHOLOGY (05/02/2018 12:00 AM PHYSICAL SECURITY ENGINEER) Case Report Dermatopathology Report Case: [id number] Authorizing Provider: Froy Reese MD Collected: 05/02/2018 12:00 AM Pathologist: Regina Denton MD Received: 05/03/2018 11:48 AM Specimen: Skin, left upper back 9 2:32 PM PHYSICAL SECURITY ENGINEER DERMATOPATHOLOGY LABORATORY Final Diagnosis Specimen A. 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 Previous Bx: [id number]. 2:32 PM [facility] DERMATOPATHOLOGY LABORATORY Gross Description Specimen A: Received is one formalin filled container labeled with the patient's name and designated left upper back.The specimen consists of an ellipse measuring [id number] and is oriented with the notch at [...] in cassettes 3-4. Jar 0. 2:32 PM [facility] DERMATOPATHOLOGY LABORATORY Microscopic Description Specimen A. SKIN, left upper back: There are fibroblasts and collagen bundles oriented parallel to the skin surface. There are elongated blood vessels, some of which are oriented perpendicular to the skin surface. No residual squamous cell carcinoma is identified. 2:32 PM [facility] DERMATOPATHOLOGY LABORATORY Disclaimer An external and internal positive and negative controls are appropriate for the histochemical, immunohistochemical and immunofluorescence stain(s) in this case (if any), except where stated explicitly. The performance characteristics of the stain(s) cited in this report were developed and its performance characteristic determined by the Dermatopathology Laboratory at [facility], directed by Dr. Luis F Monge. These tests need not be, and therefore are not, approved by the [place] Food and Drug Administration. The tests are used for clinical purposes. Billing Codes Specimen Charges Stain Charges 59301 1 2:32 PM [facility] DERMATOPATHOLOGY LABORATORY Embedded Images 2:32 PM [facility] DERMATOPATHOLOGY LABORATORY Pathology/Cytolog y TISSUE SPECIMEN FROM SKIN / Unknown 05/02/2018 05/03/2018 11:48 AM PHYSICAL SECURITY ENGINEER Froy Reese MD LAB - PATHOLOGY/CYTO LOGY ORDERABLES DERMATOPATHOLOGY LABORATORY [facility] - Department of Dermatology [address] 5th Floor Lab [address] [phone] documented in this encounter Visit Diagnoses Not on filedocumented in this encounter
--- OUTSIDE RECORDS SUMMARY | 2024-05-17 00:09 | XMS_ITS | Clinical Summary ---
Author Organization [facility] Address [address] [place] [address] Care Team Providers Care Fishing Vessel Operator Name Role Phone Unavailable Primary Care Provider Unavailabl e Source Comments [facility] [employer],non-owned Affiliates and Associated Physician Practices is amultiple site organization consisting of ambulatory clinics and hospital sitesin [place], [place], [place] and [place]. This disclosure is being madepursuant to the Care Everywhere program and may not contain all information available regarding this patient. Last updated 17.[facility] [employer] Allergies No known active allergies Medications Be [...] Comments Blood Pressure 116/70 05/08/2019 4:44 PM LOCK STITCH CHANNELER Pulse 83 05/08/2019 4:44 PM LOCK STITCH CHANNELER Temperature 36.8 C (98.2 F) 05/08/2019 4:44 PM LOCK STITCH CHANNELER Respiratory Rate 16 05/08/2019 4:44 PM LOCK STITCH CHANNELER Oxygen Saturation 98% 05/08/2019 4:44 PM LOCK STITCH CHANNELER Inhaled Oxygen Concentration - - Weight 81.6 kg (180 lb) 05/08/2019 4:44 PM LOCK STITCH CHANNELER Height 170.2 cm (5' 7 ) 05/08/2019 4:44 PM LOCK STITCH CHANNELER Body Mass Index 28.19 05/08/2019 4:44 PM LOCK STITCH CHANNELER Plan of Treatment Health Maintenance Due Date [...]
--- OUTSIDE RECORDS SUMMARY | 2024-05-17 00:09 | XMS_ITS | Encounter Summary ---
Author Organization [facility] Address [address] [place] [address] Care Team Providers Care Labor Relations Specialist Name Role Phone Unavailable Primary Care Provider Unavailabl e Encounter Details Date Type Department Care Team (Late st Contact Info) Description 05/30/2018 Lab Requisition [facility] Care DermPath Lab [address] [facility] [place] [address] Froy Reese MD [address] [place] [address] Social History Tobacco Use Types [...] Comments DERMATOPATHOLOGY Routine 05/29/2018 12:0 0 AM FINE ARTS CHAIR documented in this encounter Results * DERMATOPATHOLOGY (05/29/2018 12:00 AM FINE ARTS CHAIR) Case Report Dermatopathology Report Case: [id number] Authorizing Provider: Froy Reese MD Collected: 05/29/2018 12:00 AM Pathologist: Regina Denton MD Received: 05/30/2018 11:46 AM Specimens: A) - Skin, left sup ant thigh B) - Skin, left lower ant thigh 9 1:37 PM FINE ARTS CHAIR DERMATOPATHOLOGY LABORATORY Final Diagnosis Specimen A. SKIN, left sup ant thigh: LICHEN PLANUS-LIKE KERATOSIS (BENIGN LICHENOID KERATOSIS) (L82.1) Specimen B. SKIN, left lower ant thigh: SOLAR LENTIGO (L81.4) 1:37 PM [facility] DERMATOPATHOLOGY LABORATORY Clinical History A: R/O HAK, Madden's. B: R/O dys nevus, ISK. 1:37 PM [facility] DERMATOPATHOLOGY LABORATORY Gross Description Specimen A: Received is one formalin filled container labeled with the patient's name and designated left sup ant thigh. The specimen consists of a shave biopsy measuring [id number]. Jar 0. Specimen B: Received is one formalin filled container labeled with the patient's name and designated left lower ant thigh. The specimen consists of a shave biopsy measuring 66c2d5wr. Jar 0. 1:37 PM [facility] DERMATOPATHOLOGY LABORATORY Microscopic Description Specimen A. SKIN, [...] basophilic degeneration of elastic fibers. 1:37 PM [facility] DERMATOPATHOLOGY LABORATORY Disclaimer An external and internal positive and negative controls are appropriate for the histochemical, immunohistochemical and immunofluorescence stain(s) in this case (if any), except where stated explicitly. The performance characteristics of the stain(s) cited in this report were developed and its performance characteristic determined by the Dermatopathology Laboratory at [facility], directed by Dr. Luis F Monge. These tests need not be, and therefore are not, approved by the [place] Food and Drug Administration. The tests are used for clinical purposes. Billing Codes Specimen Charges Stain Charges 90092 93617 1 1 1:37 PM [facility] DERMATOPATHOLOGY LABORATORY Embedded Images 1:37 PM [facility] DERMATOPATHOLOGY LABORATORY Pathology/Cytology TISSUE SPECIMEN FROM SKIN / Unknown 05/29/2018 05/30/2018 11:46 AM FINE ARTS CHAIR Miscellaneous samples (specimen) TISSUE SPECIMEN FROM SKIN / Unknown 05/29/2018 05/30/2018 11:46 AM FINE ARTS CHAIR Froy Reese MD LAB - PATHOLOGY/CYTO LOGY ORDERABLES DERMATOPATHOLOGY LABORATORY [facility] - Department of Dermatology [facility] [facility] 5th Floor Lab [address] [phone] documented in this encounter Visit Diagnoses Not on filedocumented in this encounter
--- OUTSIDE RECORDS SUMMARY | 2024-05-17 00:09 | XMS_ITS | Referral Summary ---
Author Organization [facility] Address [address] [place] [address] Care Team Providers Care Roll Wrapper Name Role Phone Referral, Self Primary Care [...] on file Legal Sex Female 9:56 AM ARMATURE BALANCER Gender Identity Not on file Sexual Orientation [...] Plan of Treatment Not on file Insurance [facility] PPO [facility] HMO/PPO Address: [facility] [id number] [place] [id number] [facility] PPO Care Teams Roll Wrapper Relationship Specialty Start Date End Date Referral, Self PCP - General 04/24/23
[2024-06-03 12:10] VITALS: BMI 25.9
--- NOTE | 2024-06-03 12:46 | PC.NURSE ---
Report to the Outpatient Waiting Room, entrance under the green pavilion located off [facility], at time _1000AM on date 06/13/24 . Planned Procedure Time: ___1200AM .? Time changes happen often and if your time is changed the preop area will call you the afternoon before. - You and your visitor will be asked to self-screen and do not enter if you have any COVID symptoms. Please call surgeon if you need to reschedule. - A mask is optional within the hospital at this time. Patients may have clear liquids (water, carbonated beverages, clear teas, apple juice) until 3 hours prior to surgery with a maximum of 20 ounces. - No food from midnight until time of surgery and no smoking, or chewing tobacco (or any form of nicotine). No chewing gum, candy or mints. - Take only the following medications with a SIP of water on the morning of surgery: ____NONE DO NOT STOP ANY OF YOUR OTHER PRESCRIPTION MEDICATIONS PRIOR TO SURGERY EXCEPT THE FOLLOWING Hold all vitamins and supplements for 3 days per anesthesiologist. Medications to discontinue per physician N/A- MOTRIN ALREADY ON HOLD Date to take last dose___N/A Please no make-up, nail portuguese, hairspray, perfume, deodorant, or body powder the day of surgery.? No jewelry (including any body piercings) or valuables the day of surgery, leave them at home.? Please take a shower or bath the night before, or the morning of, surgery with an antibacterial soap.? Wear comfortable, loose fitting clothing.? - Jewelry must be removed prior to entering the operating room.? Rings and piercings that are not removed may be cut off. - The hospital will not accept responsibility for valuables.? - Please leave all valuables, including medications, at home the day of surgery. If you are going home after surgery, a licensed rear load truck driver must drive you home.? - NO public transportation without another adult if you receive anesthesia. - We recommend that an adult stay with you for 24 hours following discharge. - We also recommend that you do not drive, make important decision, drink alcoholic beverages, or take any drugs that were not prescribed by your health care provider for at least 24 hours after your discharge time. Follow any additional instructions given to you from your surgeon. Telephone instructions given to _TRACY and asked if any additional questions and then verbalized understanding. Patient advised to call surgeon office or pre surgery nurse liaison [phone] if any additional questions.
--- NOTE | 2024-06-12 14:16 | P.HP_ITS ---
H&P: HPI History of Present Illness Date/Time: 06/12/24 14:16 Chief Complaint: Traumatic rotator cuff tear right shoulder Narrative: 64-year-old female presents today for arthroscopy of her right shoulder with min i open rotator cuff repair proceed as indicated. Patient fell on April 10 of this year. She slipped on the ice at work. She had immediate severe pain in the anterior superior aspect of the right shoulder. She was initially evaluated in the ER x-rays of the shoulder showed no definite abnormalities. She has subsequently had MRI scan done in late March of the shoulder which did show a large full-thickness tear of the rotator cuff tendon. It involves the entire with of the supraspinatus in the upper portion of the infraspinatus. Patient was seen by on 05/06. He was the MRI scan with the patient. He did recommend surgical repair of the tear. Patient is only 64 and has an acute large tear. She advise past treated surgically to repair the tendon back down to the bone.. Patient would like to proceed with that and presents today for that. Review of Systems Review of Systems: All systems reviewed & are unremarkable except as noted in HPI and below PMFSH Past Medical History Medical History Colon polyp Osteopenia Elevated lipids Surgical History Surgical History H/O vein stripping History of section History of bilateral breast reduction surgery Family History Family History Other Family history of malignant neoplasm of ovary Family history of pancreatic cancer Social History Social History (Updated 04/30/24 @ 13:37 by Altagracia Mckoy CMA) Smoking status: Never smoker Second hand tobacco smoke exposure: No Alcohol intake: current Substance use: never Substance use type: does not use Do You Feel Safe in your Home?: Yes Lack of Transportation: No Lack of Food: Never True Current Housing: I Have Housing Concerned About Future Housing: No Difficulty Paying Gas/Electric Bills: No Difficulty Paying for Meds: No Currently Unemployed: No Education: Associate Degree Difficulty w/ Childcare or Family Care: No Living arrangements: with family Occupation/Education: occupation Gender identity (if verbalized by the patient): Female Sexual Orientation (if Verbalized by the Patient): Straight or Heterosexual Spiritual care concerns: No Meds Home Medications and Allergies Home Medications ?Medication ?Instructions ?Recorded ?Confirmed ?Type acetaminophen 500 mg capsule 500 mg PO Q6H PRN pain #20 caps 04/10/24 05/08/24 Rx ibuprofen 800 mg tablet 800 mg PO TID PRN pain #20 tabs 04/10/24 06/03/24 Rx cyclobenzaprine 10 mg tablet 10 mg PO TID PRN muscle spasm #30 04/22/24 05/08/24 Rx tabs progesterone micronized 100 mg 100 mg PO DAILY 05/06/24 05/08/24 History capsule rosuvastatin 5 mg tablet 5 mg PO DAILY #30 tabs 05/12/24 06/03/24 Rx Allergies Allergy/AdvReac Type Severity Reaction Status Date / Time No Known Allergies Allergy Verified 06/03/24 12:33 Exam Narrative: 64-year-old female very alert pleasant. She has 99982 lb BMI is 27.1. She has active elevation of the right shoulder only to 65?. Passively 145. This was very painful. External rotation to 55 internal rotation L2. She has moderate to severe weakness with abduction strength testing and moderately severe weakness with external rotation. Belly press is normal. Subscap liftoff is intact. There is no tenderness over the AC joint. Moderate tenderness over the anterior supraspinatus tendon insertion. Biceps belly has normal contour and strength. 2+ radial artery pulse. Neck range of motion is full without discomfort Resp: Auscultation: clear to auscultation bilaterally Cardio: Rate: regular rate Rhythm: regular rhythm Assessment and Plan Assessment and plan (1) Traumatic complete tear of right rotator cuff: Qualifiers: Encounter type: initial encounter Qualified Code(s): S46.011A - Strain of muscle(s) and tendon(s) of the rotator cuff of right shoulder, initial encounter Code(s): S46.011A - Strain of muscle(s) and tendon(s) of the rotator cuff of right shoulder, initial encounter Status: Acute Plan 63-year-old female who has an acute large rotator cuff tear right shoulder. It was discussed with the patient that given her young age this is best treated and with repair of the tendon back to the bone. Surgical procedure as well as the risks and complications were discussed in detail all questions were answered and we will proceed. Patient did have a nasal swab that was negative. She will see her primary care doctor for pre-surgical clearance. She was initially scheduled for surgery approximately 1 month ago, she had an abnormal EKG. She was seen by Cardiology and had an echocardiogram done which showed ejection fraction at 65- 70% and normal left ventricular function and size. She has been cleared from cardiology. Patient will avoid any aspirin ibuprofen products 1 week to surgery
[2024-06-13] VITALS (11 sets, daily range): BP systolic 112–127; BP diastolic 54–82; PULSE 52–97; RESP 13–20; TEMP 36.1–36.6; O2SAT 93–100
--- OUTSIDE RECORDS SUMMARY | 2024-06-13 01:18 | XMS_ITS | Referral Summary ---
Author Organization [facility] Address [address] [place] [address] Care Team Providers Care Retail Team Member Name Role Phone Referral, Self Primary Care [...] on file Legal Sex Female 9:56 AM SOCIAL MEDIA STRATEGIST Gender Identity Not on file Sexual Orientation [...] Plan of Treatment Not on file Insurance [facility] PPO [facility] P[facility] Care Teams Retail Team Member Relationship Specialty Start Date End Date Referral, Self PCP - General 04/24/23
--- OUTSIDE RECORDS SUMMARY | 2024-06-13 01:18 | XMS_ITS | Encounter Summary ---
Author Organization [facility] Address [address] [place] [address] Care Team Providers Care Longwall Headgate Operator Name Role Phone Unavailable Primary Care Provider Unavailabl e Encounter Details Date Type Department Care Team (Late st Contact Info) Description 04/19/2018 Lab Requisition [facility] Care DermPath Lab [address] [facility] [place] [address] Froy Reees MD [address] [place] [address] Social History Tobacco Use Types [...] Comments DERMATOPATHOLOGY Routine 04/18/2018 12:0 0 AM SHOWCASE MAKER documented in this encounter Results * DERMATOPATHOLOGY (04/18/2018 12:00 AM SHOWCASE MAKER) Case Report Dermatopathology Report Case: [id number] Authorizing Provider: Froy Reese MD Collected: 04/18/2018 12:00 AM Pathologist: Regina Denton MD Received: 04/19/2018 02:16 PM Specimen: Skin, left upper back 9 3:40 PM SHOWCASE MAKER DERMATOPATHOLOGY LABORATORY Final Diagnosis Specimen A. SKIN, left upper back: SUPERFICIAL (FOCALLY INVASIVE) SQUAMOUS CELL CARCINOMA ARISING IN AN ACTINIC KERATOSIS (C44.529) 9 3:40 PM SHOWCASE MAKER DERMATOPATHOLOGY LABORATORY Clinical History R/O SCC. 3:40 PM [facility] DERMATOPATHOLOGY LABORATORY Gross Description Specimen A: Received is one formalin filled container labeled with the patient's name and designated left upper back. The specimen consists of a shave biopsy measuring [id number]. Jar 0. 3:40 PM [facility] DERMATOPATHOLOGY LABORATORY Microscopic Description Specimen A. SKIN, left upper back: Sections reveal parakeratosis, acanthosis and keratinocyte dysmaturation which is most prominent in the lower epidermis. Focal nests are present in the dermis. 3:40 PM [facility] DERMATOPATHOLOGY LABORATORY Disclaimer An external and internal positive and negative controls are appropriate for the histochemical, immunohistochemical and immunofluorescence stain(s) in this case (if any), except where stated explicitly. The performance characteristics of the stain(s) cited in this report were developed and its performance characteristic determined by the Dermatopathology Laboratory at [facility], directed by Dr. Luis F Monge. These tests need not be, and therefore are not, approved by the [place] Food and Drug Administration. The tests are used for clinical purposes. Billing Codes Specimen Charges Stain Charges 20523 1 3:40 PM SHOWCASE MAKER DERMATOPATHOLOGY LABORATORY Embedded Images 3:40 PM [facility] DERMATOPATHOLOGY LABORATORY Pathology/Cytolog y TISSUE SPECIMEN FROM SKIN / Unknown 04/18/2018 04/19/2018 2:16 PM SHOWCASE MAKER Froy Reese MD LAB - PATHOLOGY/CYTO LOGY ORDERABLES Performing Organization Address City/State/RUST Co de Phone Number DERMATOPATHOLOGY LABORATORY [facility] - Department of Dermatology [address] [place] [address], [address] [place] [address], [facility] [phone] documented in this encounter Visit Diagnoses Not on filedocumented in this encounter
--- OUTSIDE RECORDS SUMMARY | 2024-06-13 01:18 | XMS_ITS | Encounter Summary ---
Author Organization [facility] Address [address] [place] [address] Care Team Providers Care Electronic Intelligence Officer Name Role Phone Unavailable Primary Care Provider Unavailabl e Encounter Details Date Type Department Care Team (Late st Contact Info) Description 05/30/2018 Lab Requisition [facility] Care DermPath Lab [address] [facility] [place] [address] Froy Reese MD [address] [place] [address] Social History Tobacco Use Types [...] Comments DERMATOPATHOLOGY Routine 05/29/2018 12:0 0 AM PHYSICAL THERAPY ASSISTANT INSTRUCTOR documented in this encounter Results * DERMATOPATHOLOGY (05/29/2018 12:00 AM PHYSICAL THERAPY ASSISTANT INSTRUCTOR) Case Report Dermatopathology Report Case: [id number] Authorizing Provider: Froy Reese MD Collected: 05/29/2018 12:00 AM Pathologist: Regina Denton MD Received: 05/30/2018 11:46 AM Specimens: A) - Skin, left sup ant thigh B) - Skin, left lower ant thigh 9 1:37 PM PHYSICAL THERAPY ASSISTANT INSTRUCTOR DERMATOPATHOLOGY LABORATORY Final Diagnosis Specimen A. SKIN, left sup ant thigh: LICHEN PLANUS-LIKE KERATOSIS (BENIGN LICHENOID KERATOSIS) (L82.1) Specimen B. SKIN, left lower ant thigh: SOLAR LENTIGO (L81.4) 1:37 PM [facility] DERMATOPATHOLOGY LABORATORY Clinical History A: R/O HAK, Madden's. B: R/O dys nevus, ISK. 1:37 PM [facility] DERMATOPATHOLOGY LABORATORY Gross Description Specimen A: Received is one formalin filled container labeled with the patient's name and designated left sup ant thigh. The specimen consists of a shave biopsy measuring [id number]. Jar 0. Specimen B: Received is one formalin filled container labeled with the patient's name and designated left lower ant thigh. The specimen consists of a shave biopsy measuring [id number]. Jar 0. 1:37 PM [facility] DERMATOPATHOLOGY LABORATORY Microscopic Description Specimen [...] basophilic degeneration of elastic fibers. 1:37 PM [facility] DERMATOPATHOLOGY LABORATORY Disclaimer An external and internal positive and negative controls are appropriate for the histochemical, immunohistochemical and immunofluorescence stain(s) in this case (if any), except where stated explicitly. The performance characteristics of the stain(s) cited in this report were developed and its performance characteristic determined by the Dermatopathology Laboratory at [facility], directed by Dr. Luis F Monge. These tests need not be, and therefore are not, approved by the [place] Food and Drug Administration. The tests are used for clinical purposes. Billing Codes Specimen Charges Stain Charges 77472 85525 1 1 1:37 PM [facility] DERMATOPATHOLOGY LABORATORY Embedded Images 1:37 PM [facility] DERMATOPATHOLOGY LABORATORY Pathology/Cytology TISSUE SPECIMEN FROM SKIN / Unknown 05/29/2018 05/30/2018 11:46 AM PHYSICAL THERAPY ASSISTANT INSTRUCTOR Miscellaneous samples (specimen) TISSUE SPECIMEN FROM SKIN / Unknown 05/29/2018 05/30/2018 11:46 AM PHYSICAL THERAPY ASSISTANT INSTRUCTOR Froy Reese MD LAB - PATHOLOGY/CYTO LOGY ORDERABLES DERMATOPATHOLOGY LABORATORY [facility] - Department of Dermatology [facility] [facility] 5th Floor Lab B [address] [phone] documented in this encounter Visit Diagnoses Not on filedocumented in this encounter
--- OUTSIDE RECORDS SUMMARY | 2024-06-13 01:18 | XMS_ITS | Clinical Summary ---
Author Organization [facility] Address [address] [place] [address] Care Team Providers Care Message And Delivery Service Pricer Name Role Phone Unavailable Primary Care Provider Unavailabl e Source Comments [facility],non-owned Affiliates and Associated Physician Practices is amultiple site organization consisting of ambulatory clinics and hospital sitesin [place], [place], [place] and [place]. This disclosure is being madepursuant to the Care Everywhere program and may not contain all information available regarding this patient. Last updated 17.[facility] Allergies No known active allergies Medications Be [...] Comments Blood Pressure 116/70 05/08/2019 4:44 PM INSPECTOR COLD WORKING Pulse 83 05/08/2019 4:44 PM INSPECTOR COLD WORKING Temperature 36.8 C (98.2 F) 05/08/2019 4:44 PM INSPECTOR COLD WORKING Respiratory Rate 16 05/08/2019 4:44 PM INSPECTOR COLD WORKING Oxygen Saturation 98% 05/08/2019 4:44 PM INSPECTOR COLD WORKING Inhaled Oxygen Concentration - - Weight 81.6 kg (180 lb) 05/08/2019 4:44 PM INSPECTOR COLD WORKING Height 170.2 cm (5' 7 ) 05/08/2019 4:44 PM INSPECTOR COLD WORKING Body Mass Index 28.19 05/08/2019 4:44 PM INSPECTOR COLD WORKING Plan of Treatment Health Maintenance Due Date [...] to complete this topic MENINGOCOCCAL (Group B) VACC INE SHARED DECISION-MAKING Aged Out No longer eligibl e based on patient's age to complete this topic MENINGOCOCCAL GROUPS A/C/Y/W VACCINE Aged Out No longer eligible b ased on patient's age to complete this topic PNEUMOCOCCAL VACCINE Aged Out No long er eligible based on patient's age to complete this topic
--- OUTSIDE RECORDS SUMMARY | 2024-06-13 01:18 | XMS_ITS | Clinical Summary ---
Author Organization 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
--- OUTSIDE RECORDS SUMMARY | 2024-06-13 01:18 | XMS_ITS | Encounter Summary ---
Author Organization [facility] Address [address] [facility] [place] [address] Care Team Providers Care Field Counsel Name Role Phone Unavailable Primary Care Provider Unavailabl e Encounter Details Date Type Department Care Team (Late st Contact Info) Description 05/03/2018 Lab Requisition [facility] Care DermPath Lab [address] [facility] [place] [address] Froy Reese MD [address] [place] [address] Social History Tobacco Use Types [...] Comments DERMATOPATHOLOGY Routine 05/02/2018 12:0 0 AM SALES AND SERVICE TECHNICIAN documented in this encounter Results * DERMATOPATHOLOGY (05/02/2018 12:00 AM SALES AND SERVICE TECHNICIAN) Case Report Dermatopathology Report Case: [id number] Authorizing Provider: Froy Reese MD Collected: 05/02/2018 12:00 AM Pathologist: Regina Denton MD Received: 05/03/2018 11:48 AM Specimen: Skin, left upper back 9 2:32 PM SALES AND SERVICE TECHNICIAN DERMATOPATHOLOGY LABORATORY Final Diagnosis Specimen A. 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 Previous Bx: [id number]. 2:32 PM [facility] DERMATOPATHOLOGY LABORATORY Gross Description Specimen A: Received is one formalin filled container labeled with the patient's name and designated left upper back.The specimen consists of an ellipse measuring [id number] and is oriented with the notch at [...] in cassettes 3-4. Jar 0. 2:32 PM [facility] DERMATOPATHOLOGY LABORATORY Microscopic Description Specimen A. SKIN, left upper back: There are fibroblasts and collagen bundles oriented parallel to the skin surface. There are elongated blood vessels, some of which are oriented perpendicular to the skin surface. No residual squamous cell carcinoma is identified. 2:32 PM [facility] DERMATOPATHOLOGY LABORATORY Disclaimer An external and internal positive and negative controls are appropriate for the histochemical, immunohistochemical and immunofluorescence stain(s) in this case (if any), except where stated explicitly. The performance characteristics of the stain(s) cited in this report were developed and its performance characteristic determined by the Dermatopathology Laboratory at [facility], directed by Dr. Luis F Monge. These tests need not be, and therefore are not, approved by the [place] Food and Drug Administration. The tests are used for clinical purposes. Billing Codes Specimen Charges Stain Charges 31388 1 2:32 PM [facility] DERMATOPATHOLOGY LABORATORY Embedded Images 2:32 PM [facility] DERMATOPATHOLOGY LABORATORY Pathology/Cytolog y TISSUE SPECIMEN FROM SKIN / Unknown 05/02/2018 05/03/2018 11:48 AM SALES AND SERVICE TECHNICIAN Froy Reese MD LAB - PATHOLOGY/CYTO LOGY ORDERABLES DERMATOPATHOLOGY LABORATORY [facility] - Department of Dermatology [address] [facility]th Floor Lab [address] [phone] documented in this encounter Visit Diagnoses Not on filedocumented in this encounter
[2024-06-13] MEDS: ACETAMINOPHEN 500 MG TABLET 1000 MG PO (10:30)
[2024-06-13] MEDS: LACTATED RINGERS 1,000 ML 30 ML IV CONT ×2 (10:35→15:22)
[2024-06-13] MEDS: KETOROLAC 15 MG/ML VIAL (*BKC) IV PUSH (10:40)
[2024-06-13] MEDS: VANCOMYCIN 1,250 MG/NS 250 ML 1,250 MG/250 ML BAG 166.67 MG IVPB (10:40)
--- NOTE | 2024-06-13 11:35 | WPDHPUPDATE1 ---
History and Physical Update Update Date/Time: 06/13/24 11:35 History and Physical has been reviewed, including an updated exam of the patient. There are NO changes in the patient's condition. Risks, benefits, and alternatives have been discussed and questions answered. Patient agrees to proceed with procedure.
--- NOTE | 2024-06-13 12:00 | P.PNAN_ITS ---
Anes - Initial Pre Proc Eval Procedure: Operation Date: 06/13/24 12:00 Proposed Procedures p Arthroscopic Right Shoulder Mini Open Rotator Cuff Repair, Proceed As Indicated - Sheldon Carrington MD Date/Time: 06/13/24 12:00 Surgeon: Sheldon Carrington MD Pre Op Diagnosis: Acute Traumatic Right Rotator Cuff Tear Patient Data Age: 64 Gender: F Height: 1.7 m Weight: 80.4 kg Last Vital Signs Temp 97.9 F 06/13/24 10:10 Pulse 70 06/13/24 10:10 Resp 16 06/13/24 10:10 BP 127/81 06/13/24 10:10 Pulse Ox 100 06/13/24 10:10 O2 Del Method Room Air 06/13/24 10:10 Allergies Allergy/AdvReac Type Severity Reaction Status Date / Time No Known Allergies Allergy Verified 06/13/24 10:15 Home Medications ?Medication ?Instructions ?Recorded ?Confirmed ?Type acetaminophen 500 mg capsule 500 mg PO Q6H PRN pain #20 caps 04/10/24 05/08/24 Rx ibuprofen 800 mg tablet 800 mg PO TID PRN pain #20 tabs 04/10/24 06/03/24 Rx cyclobenzaprine 10 mg tablet 10 mg PO TID PRN muscle spasm #30 04/22/24 05/08/24 Rx tabs progesterone micronized 100 mg 100 mg PO DAILY 05/06/24 06/13/24 History capsule rosuvastatin 5 mg tablet 5 mg PO DAILY #30 tabs 05/12/24 06/13/24 Rx Patient hx anesthesia problems: none Family hx anesthesia problems: none Results Review: All pre-operative results and documents have been reviewed as part of the pre- operative evaluation. [facility] Past Medical History Medical History Colon polyp Osteopenia Elevated lipids Surgical History Surgical History H/O vein stripping History of section History of bilateral breast reduction surgery Family History Family History Other Family history of malignant neoplasm of ovary Family history of pancreatic cancer Social History Social History (Updated 04/30/24 @ 13:37 by WHITNEY Valentino Smoking status: Never smoker Second hand tobacco smoke exposure: No Alcohol intake: current Substance use: never Substance use type: does not use Do You Feel Safe in your Home?: Yes Lack of Transportation: No Lack of Food: Never True Current Housing: I Have Housing Concerned About Future Housing: No Difficulty Paying Gas/Electric Bills: No Difficulty Paying for Meds: No Currently Unemployed: No Education: Associate Degree Difficulty w/ Childcare or Family Care: No Living arrangements: with family Occupation/Education: occupation Gender identity (if verbalized by the patient): Female Sexual Orientation (if Verbalized by the Patient): Straight or Heterosexual Spiritual care concerns: No Anes - Eval Final PreProcedure Day of Procedure 06/13/24 12:00 Patient weight: normal Heart: regular rate and rhythm Lungs: clear to auscultation Airway: Mallampati scale class II Neurological: alert and oriented Last oral intake: >/= 8 hours ASA classification: II Emergent: no Anesthetic plan: proceed Anesthesia type and monitoring: general ETT and standard monitoring Results Review: All pre-operative results and documents have been reviewed as part of the pre- operative evaluation. Informed Consent: The patient's anesthetic plan and its attendant risks and benefits were discussed with the patient/family/POA. Questions were solicited and answers provided to the satisfaction of the patient/family/POA.
[2024-06-13] MEDS: SCOPOLAMINE 1 MG PATCH 1 PATCH TRANSDERM (12:10)
[2024-06-13] MEDS: ceFAZolin 2 GM/D5W 50 ML 2 GM/50 ML BAG IVPB (12:12)
[2024-06-13] MEDS: ceFAZolin SODIUM 1 GM VIAL (13:03)
[2024-06-13] MEDS: SODIUM CHLORIDE 0.9% IVPB (13:03)
[2024-06-13] MEDS: ROPIVACAINE HCL IVPB (13:03)
[2024-06-13] MEDS: EPINEPHrine HCL INJ 1 MG/ML AMPUL 2 MG IRRIGATION (13:07)
--- NOTE | 2024-06-13 15:23 | P.OP_ITS ---
Procedure Note - Detailed Date of Procedure 06/13/24 Pre-op Diagnosis Acute Traumatic Right Rotator Cuff Tear Post-op Diagnosis Same Procedure Performed Arthroscopic acromioplasty, mini open rotator cuff repair right shoulder Surgeon Sheldon Carrington MD [employer] Dex Anesthesia General Description of Procedure Patient was brought to the operating room and general anesthesia was administered. She received 2 g of Ancef weight based vancomycin preoperatively. She was carefully placed in the beach chair position and the head positioned in neutral alignment adapting to her upper thoracic kyphosis posture. The right shoulder had full passive range of motion. The right shoulder was prepped draped usual fashion all skin covered with Ioban except top portion. A posterior portal was placed a. Anterior superior portal was made through which a small motorized shaver inserted. The articular surfaces of the glenoid and humeral head were perfect. The labrum showed no significant tearing throughout. The morphology of the long head of the biceps was somewhat unusual. We there was a fibrous fully about a cm long surrounding the proximal aspect of the biceps closer to its origin which was attached to the undersurface of the supraspinatus tendon and there were 2 longitudinally oriented strands of tendon like tissue that blended with the long of the biceps intra-articular portion closer to the bicipital groove and then away from the main body long of the biceps and inserted on the undersurface of the supraspinatus tendon. The rotator cuff interval capsule was detached as was the anterior cable of the supraspinatus and the tear extended all the way to the infraspinatus so it was a very large tear with medial retraction that was significant. Inferior capsular recess was unremarkable inferior labrum pristine. Arthroscope was placed in the subacromial space mid lateral portal created anterior outflow portal placed the ArthroCare Wand used to release the anterior coracoacromial ligament from the acromion and a very limited acromioplasty was performed with the arthroscopic acromionizer michelle inserted from the posterior portal running on reverse to remove couple mm of bone from the anterior-inferior acromion where there was having degree of bony excrescence. The arthroscopic instruments removed and we covered the remaining or skin with I have and changed the outer gloves. A 4 cm longitudinal incision was made from the top of the anterior acromion off the anterolateral edge the acromion over the tendinous raphe a anterior middle heads of the deltoid and deltoid was the size has split of 3.5 cm. We elevated about 6 or 7 mm of anterior deltoid from the anterior acromion which vastly improved exposure and the self-retaining retractor was placed. The tear was as described above and extended all the way to the teres minor posteriorly with about a 1 cm split the between the lateral aspect of teres minor and infraspinatus and there is significant retraction posteromedially. The anterolateral corner of the rotator cuff at very good thickness. The initially would not hold to its anatomic insertion but we placed for sutures to in the supraspinatus to the infraspinatus and gently retracting on these use a medium elevator to release adhesions over the external surface of the supraspinatus and infraspinatus muscles. This allowed further mobilization. The anterior portion of the supraspinatus was somewhat tethered by the tendinous bands and I therefore felt it advantageous to release these bands from the undersurface of the supraspinatus which was done carefully avoiding trauma to the long head of the biceps proper. This allowed us to pass a [place] elevator over the top of the superior labrum for a few mm. We also released adhesions at the lateral base of the coracoid and with this accomplished the anterolateral corner of the retracted cuff reached all the way to the posterior edge of the rotator cuff interval anteriorly and laterally to the top of the fascia over the bicipital groove. We then prepared the greater tuberosity. The tuberosity had no tendon on it fortunately. Again the entire long head of the biceps was exposed as the plane of the tear was anterior to the long of the biceps. I used a fresh 15 blade scalpel to scrape the fibrinous material off the entire supraspinatus and infraspinatus facets of the greater tuberosity and then a 2 mm bur was used to make multiple bur holes adjacent to the articular surface for the supraspinatus and just off the articular surface for the infraspinatus accommodating the bare area. We then focused on determine the anatomic location for attachment of the retracted rotator cuff. It looked like the right angle corner which fit perfectly into the right angle corner that was just anterolateral to the uncovered long head of the biceps. I could not be sure that this would allow internal rotation knee does we had to have the arm externally rotated to visualize the anterior aspect of the rotator cuff interval laterally so we used a Number 2 Ethibond passing it through the corner rotator cuff flap and advanced it to the corner at the anterior lateral aspect of the top bicipital groove stitching it to the anterior fascia of the bicipital groove upper edge. This was tissue only about 2 mm thick. There We then passed an X Braid 1.3 mm Hans suture at the normal insertion of the anterior cable the supraspinatus passing it just posterior to the long head of the biceps in the anterior edge of the greater tuberosity footprint. Tape We then internally rotated the arm fully and after externally rotating the arm we saw that the stitches held and did not pull through indicating that we had enough mobility to allow full internal rotation. And also confirming that we had anatomic reduction of the tendon. To reduce not size we used number 1 Ethibond in [id number] sutures to sew the anterior edge of the retracted rotator cuff flap to the superior edge of the rotator cuff interval tissue. This was above the level of the subscapularis tendon which was not visualized through the open incision. The interval was closed for a distance of about 2.5 cm. This completely covered the long head of the biceps. We then focused on repairing the infraspinatus and supraspinatus tendons. A total of 5 of the 1.3 mm X braid suture tapes were used spanning to the inferior aspect of his of the infraspinatus insertion and then a Number 2 Ethibond was used in which a the a approximately 1 cm split between inferior edge of the infraspinatus and the insertion of the teres minor. Two additional Number 2 at the bounce were used in between 2 pairs of the X braid sutures where I felt there was room for additional suture to enhance the repair. The sutures were placed through the 2mm michelle holes medial aspect of the greater tuberosity footprint placed a simple fashion in a converging pattern to create a smooth spherical contour to the repaired rotator cuff. With this completed we took the arm through full range of motion there was no tension on the repair or impingement under the anterior acromion. Since the thickness of the edge of the rotator cuff tendon was very ample and there was no fraying or tear a ch of lateral edge of the tendon and no propensity for sutures pulled through the tendon, I did not feel that augmentation with dermal allograft was indicated. We then placed the arthroscope into the shoulder and verified that the long head of the biceps tendon was mobile. We could see that the medial prakash was clearly intact for the long head of the biceps. The subscapularis looked normal as well including at its insertion. The wound was irrigated again with Ancef solution. A single number 2 Vicryl was placed anterior acromion and the small cuff of anterior deltoid repair to that as well as a corner stitch to the attached origin of the deltoid lateral to the split and then the split closed with running 0 Vicryl. Skin closed with 2 subcutaneous Vicryl and glue. Portals closed with 3-0 subcutaneous Vicryl and glue. She was placed in an UltraSling and transferred to postop recovery room in good condition. There were no known complications. [facility] [place] Billing Surgery - Charge Forward: Surgery Billing (Arthroscopic acromioplasty right shoulder mini open rotator cuff repair of a large acute traumatic rotator cuff tear.)
--- NOTE | 2024-06-13 15:28 | PM.OP ---
Procedure Note - Brief Procedure Note - Brief Date of procedure: 06/13/24 Acute Traumatic Right Rotator Cuff Tear Procedure performed: Arthroscopy of right shoulder with mini open rotator cuff repair Surgeon: PRIYANKA Chirinos Findings: 64-year-old female who underwent arthroscopy of her right shoulder with mini open rotator cuff repair on 06/13. I was involved in the procedure including positioning the patient on the OR table in 1st assisting through the time surgery. Total time spent was 3 hours
[2024-06-13] MEDS: fentaNYL CITRATE INJ (*CRX) 100 MCG/2 ML VIAL 25 MCG IV PUSH ×2 (15:43→15:50)
--- NOTE | 2024-06-13 16:16 | WPDANESPNB ---
Anes - Peripheral Nerve Block Date/Time: 06/13/24 16:16 I have discussed with the patient/family/POA the placement of a peripheral nerve block for post-operative pain management, including associated risks, benefits, complications, and side effects. Alternative methods of post-operative analgesia were detailed. Questions were solicited and answers provided to the satisfaction of the patient/family/POA. Time-Out: A pre-procedural Time-Out was completed immediately before starting the procedure and confirmed: Patient Identification, Site, Procedure, Patient Position and the Availability of Requisite Equipment. Clinical Indications: Acute post-operative pain management requested by the operative surgeon. Nerve Block Insertion Note Anes-nerve block: interscalene right Patient position: other (sitting) Skin prep: chlorhexidine Needle: 22 gauge, stimulating, insulated echogenic needle. Needle length: 50 mm Technique: nerve stimulation lost at (mA) (0.3) and ultrasound Technique comment: done in PACU Injectate: bupivacaine 0.5% with epi 5 mcg/ml (20ml no epi) Observations: tolerated well Complications: none Procedure start time:: 1604 Procedure end time:: 1611
[2024-06-13] MEDS: ceFAZolin 1 GM/NS 50 ML 1 GM/50 ML BAG IVPB (16:37)
[2024-06-13] MEDS: ONDANSETRON INJ 4 MG/2 ML VIAL IV PUSH (17:50)
== END 2024-06-13 18:24 | disposition home or self-care (01) ==
PROVIDERS: PCP Family Medicine; Visit Provider Orthopaedic Surgery
PROC: (CPT 29805; principal; 2024-06-13 12:00)
DX: S46.011A Strain of muscle(s) and tendon(s) of the rotator cuff of right shoulder, initial encounter (principal); G89.18 Other acute postprocedural pain; M85.88 Other specified disorders of bone density and structure, other site; W00.0XXA Fall on same level due to ice and snow, initial encounter; Z79.1 Long term (current) use of non-steroidal anti-inflammatories (NSAID); Z98.890 Other specified postprocedural states; Z86.0100 Personal history of colon polyps, unspecified; Z80.41 Family history of malignant neoplasm of ovary; Z80.0 Family history of malignant neoplasm of digestive organs
CPT/HCPCS: 64415; 23412; A4565; A9270; J0171; J0690; J1100; J1885; J2003; J2250; J2371; J2405; J2704; J2795; J3010; J3370; J7120

== ENCOUNTER 2024-09-12 14:45 | Outpatient (RCR) | payer OTHER, SELFPAY ==
--- NOTE | 2024-06-18 15:17 | OPREHPOC ---
Outpatient Therapy Plan of Care This is a Multidisciplinary Plan of Care that may contain components documented by all disciplines (PT, OT, and ST.) PT Problem 1 PT Problem #1 Knowledge Deficit PT Goal 1 Goal / Goal Update [place] with HEP Target Visit 4 PT Goal 2 Goal / Goal Update Report no [place] greater than 2/10 for 2 consecutive weeks Target Visit 10 PT Problem 2 PT Problem #2 Impaired Range of Motion PT Goal 1 Goal / Goal Update 1. Achieve 170 degrees of right shoulder passive ROM 2. Achieve 80 degrees of right shoulder external rotation ROM Target Visit 10 PT Problem 3 PT Problem #3 Impaired Strength PT Goal 1 Goal / Goal Update Patient will progress to strengthening activity for group home shoulder stability and functional reach per protocol allowance Target Visit 10
--- NOTE | 2024-06-18 15:17 | PTOPEVAL1 ---
Assessment and note entered by Dago Lane, PT Evaluation Information Assessment Status Evaluation Diagnosis Right rotator cuff repair ICD-10 Condition Codes (PT) Pain in right shoulder M25.511 Onset 06/13/24 Subjective Information Reports that she is currently taking medication for pain ad is having pain at rest. Has been wearing immobilizer as instructed and has been able to sleep in the bed upright. Reports that she is still getting some throbbing pain down her arm and occasionally into her hand. She feels that she is having some twitching in her shoulder. She feels thjat pain medication is currently making her very tired. Reported Pain Level Pain Score 6: Self Report Assessment PT Clinical Summary Patient presents with typical signs and symptoms following major rotator cuff repair. At this time no concerns outside of expectations. She shows understanding and reflection of current HEP and restrictions. Will benefit from skilled therapy for progression through protocol to restore shoulder motion and strength. Plan of Care Interventions Electrical Stimulation,Manual Lymph Drainage, Manual Therapy,Neuro Re-education,Therapeutic Activities,Therapeutic Exercise PT Services Indicated Yes Treatment Frequency and 1x/week until released for passive ROM. Then 2x/ Duration week following. These treatments will address the objective and functional deficits as defined above. The patient will be advanced safely and appropriately in order for the patient to progress towards his/her prior level of function. Additional exercises will be introduced and as well as a comprehensive home exercise program upon discharge, if needed, ?to ensure carryover of functional gains achieved in the clinic. This treatment plan has been reviewed and agreement upon by the patient.
--- NOTE | 2024-07-29 08:10 | PCPTNOTE ---
Patient called and cancelled secondary to not having a ride. Rescheduled for 5/.
--- NOTE | 2024-08-06 16:24 | OPREHPOC ---
Outpatient Therapy Plan of Care This is a Multidisciplinary Plan of Care that may contain components documented by all disciplines (PT, OT, and ST.) PT Problem 1 PT Problem #1 Knowledge Deficit PT Goal 1 Goal / Goal Update [place] with HEP Target Visit 4 PT Goal 2 Goal / Goal Update Report no [place] greater than 2/10 for 2 consecutive weeks Target Visit 20 Progress Partially Met PT Problem 2 PT Problem #2 Impaired Range of Motion PT Goal 1 Goal / Goal Update 1. Achieve 170 degrees of right shoulder passive ROM 2. Achieve 80 degrees of right shoulder external rotation ROM -Progressing both Target Visit 20 Progress Partially Met PT Problem 3 PT Problem #3 Impaired Strength PT Goal 1 Goal / Goal Update Patient will progress to strengthening activity for terminal superintendent shoulder stability and functional reach per protocol allowance Target Visit 10 Progress Partially Met PT Goal 2 Goal / Goal Update 1. Improve R shoulder external rotation strength to 4+/5 to improve capsular stability 2. Improve R shoulder flexion strength to 4/5 to improve lifting ability per protocol allowance Target Visit 20
--- NOTE | 2024-08-06 16:24 | PTOPPROG ---
Assessment and note entered by Dago Lane, PT Evaluation Information Assessment Status Progress Diagnosis Right rotator cuff repair ICD-10 Condition Codes (PT) Pain in right shoulder M25.511 Onset 06/13/24 Subjective Information Reports that she feels she is doing better with motion at this point but she is still significantly limited. She has been doing consistent stretching at home with both HEP and pulleys. Does not have much ability or tolerance to active motion and lifting and has been restricted on how much of this that she can do at home. Feels she has made a lot of progress in the last couple of weeks. Assessment PT Clinical Summary Patient treatment has shifted to Active Assisted ROM and more [id number] shoulder ROM over the past couple of weeks. We have seen ROM improvement at this time. We continue to be limited in active ROM and patient presents with significant shoulder weakness with any active movement. Patient was strength tested this date in anticipation of MD follow up and presents with significant strength deficits. Will progress as instructed, but patient continues to have ROM deficits that will need to be improved upon. Plan of Care Interventions Electrical Stimulation,Manual Lymph Drainage, Manual Therapy,Neuro Re-education,Therapeutic Activities,Therapeutic Exercise PT Services Indicated Yes Treatment Frequency and 2-3x/week for 10 visits Duration These treatments will address the objective and functional deficits as defined above. The patient will be advanced safely and appropriately in order for the patient to progress towards his/her prior level of function. Additional exercises will be introduced and as well as a comprehensive home exercise program upon discharge, if needed, ?to ensure carryover of functional gains achieved in the clinic. This treatment plan has been reviewed and agreement upon by the patient.
--- NOTE | 2024-08-10 07:22 | PCPTNOTE ---
Patient called to cancel appointment on 08/09/24 due to weather.
--- NOTE | 2024-08-30 16:19 | PTOPEVAL1 ---
Assessment and note entered by Bev Lou, PT Evaluation Information Assessment Status Progress Diagnosis Right rotator cuff repair ICD-10 Condition Codes (PT) Pain in right shoulder M25.511 Onset 06/13/24 Subjective Information Pt reports trying to focus on keeping her shoulder down to not allow her upper trapezius to turn on. She has slight increase in pain when rolling around at night. She felt good after trying her isometric exercises. She feels like she has really started to turn a corner in her rehab journey. Pt reports her pain no greater than 2/10 for almost 2 weeks. Reported Pain Level Pain Score 0: Self Report Assessment PT Clinical Summary Patient's condition has improved overall as evidenced by advancements in symptoms, ROM, and overall functional use of the extremity. However, some limitations are still present such as weakness preventing further progress into active ROM. Patient would benefit from continued skilled PT services to address the above listed impairments and facilitate a return to their PLOF. Plan of Care Interventions Electrical Stimulation,Manual Lymph Drainage, Manual Therapy,Neuro Re-education,Therapeutic Activities,Therapeutic Exercise PT Services Indicated Yes Treatment Frequency and 2x/week for 8 visits Duration These treatments will address the objective and functional deficits as defined above. The patient will be advanced safely and appropriately in order for the patient to progress towards his/her prior level of function. Additional exercises will be introduced and as well as a comprehensive home exercise program upon discharge, if needed, ?to ensure carryover of functional gains achieved in the clinic. This treatment plan has been reviewed and agreement upon by the patient.
--- NOTE | 2024-08-30 16:19 | OPREHPOC ---
Outpatient Therapy Plan of Care This is a Multidisciplinary Plan of Care that may contain components documented by all disciplines (PT, OT, and ST.) PT Problem 1 PT Problem #1 Knowledge Deficit PT Goal 1 Goal / Goal Update [place] with HEP 08/30/24 progressing, updated to isometrics last visit Target Visit 4 Progress Partially Met PT Goal 2 Goal / Goal Update Report no [place] greater than 2/10 for 2 consecutive weeks Target Visit 20 Progress Met PT Problem 2 PT Problem #2 Impaired Range of Motion PT Goal 1 Goal / Goal Update 1. Achieve 170 degrees of right shoulder passive ROM 2. 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 Improve R shoulder external rotation strength to 4+/5 to improve capsular stability 2. Improve R shoulder flexion strength to 4/5 to improve lifting ability per protocol allowance 08/30/24 progressing, just initiated strengthening last visit Target Visit 20 Progress Partially Met
== END 2024-09-16 23:59 | disposition home or self-care (01) ==
LOC: ANHGOSHPT 14:45
PROVIDERS: PCP Family Medicine; Visit Provider Orthopaedic Surgery
DX: S46.011D Strain of muscle(s) and tendon(s) of the rotator cuff of right shoulder, subsequent encounter (principal)
CPT/HCPCS: 97014; 97110; 97112; 97140; 97161; 97530; G0283

== ENCOUNTER 2024-12-24 14:30 | Outpatient (RCR) | payer OTHER, SELFPAY ==
--- NOTE | 2024-10-11 14:59 | OPREHPOC ---
Outpatient Therapy Plan of Care This is a Multidisciplinary Plan of Care that may contain components documented by all disciplines (PT, OT, and ST.) PT Problem 1 PT Problem #1 Knowledge Deficit PT Goal 1 Goal / Goal Update [place] with HEP 10/11/24 Re-set goal secondary to new injury Target Visit 4 Progress Partially Met PT Goal 2 Goal / Goal Update Report no [place] greater than 2/10 for 2 consecutive weeks 10/11/24 Re-set goal secondary to new injury Target Visit 32 Progress Met PT Problem 2 PT Problem #2 Impaired Range of Motion PT Goal 1 Goal / Goal Update 1. Achieve 170 degrees of right shoulder passive ROM 2. 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 Improve R shoulder external rotation strength to 4+/5 to improve capsular stability 2. Improve R shoulder flexion strength to 4/5 to improve lifting ability per protocol allowance 10/11/24 Re-set goal secondary to new injury Target Visit 32 Progress Partially Met
--- NOTE | 2024-10-11 14:59 | PTOPPROG ---
Assessment and note entered by Dago Lane, PT Evaluation Information Assessment Status Re-evaluation Diagnosis Right rotator cuff repair ICD-10 Condition Codes (PT) Pain in right shoulder M25.511 Onset 06/13/24 Subjective Information Reports that she is feeling much better today than she was 4 weeks ago. Feels that she is healing but is very apprehensive to motion again. She has been wearing a sling for pain relief and decompression. She has been having trouble sleeping but has returned to the bed to sleep. She is struggling again with all of her motion and is struggling with self care. Reports that she was getting into her pool and slipped on the steps on 09/14/24. She grabbed the railing with her arm and injured herself. Assessment PT Clinical Summary Mrs. Bacon presents to therapy to day with new incident of greater tuberosity fracture of proximal humerus. This has occurred on same shoulder as surgical repair. Patient at this time has shown regression in strength and ROM secondary to new onset of injury and requires reduction in activity to allow for shoulder healing at this time. Will benefit from continuation of therapy emphasizing sabianism of shoulder ROM under protocol until she is released for return to functional activity and strengthening. Plan of Care Interventions Electrical Stimulation,Manual Lymph Drainage, Manual Therapy,Neuro Re-education,Therapeutic Activities,Therapeutic Exercise PT Services Indicated Yes Treatment Frequency and 2x/week for 8 visits Duration These treatments will address the objective and functional deficits as defined above. The patient will be advanced safely and appropriately in order for the patient to progress towards his/her prior level of function. Additional exercises will be introduced and as well as a comprehensive home exercise program upon discharge, if needed, ?to ensure carryover of functional gains achieved in the clinic. This treatment plan has been reviewed and agreement upon by the patient.
--- NOTE | 2024-10-29 15:55 | PCPTNOTE ---
pt called to cancel her appt this date, unclear reason
--- NOTE | 2024-11-11 13:36 | PCPTNOTE ---
Patient called and requested to reschedule today. No reason given.
--- NOTE | 2024-11-22 15:35 | OPREHPOC ---
Outpatient Therapy Plan of Care This is a Multidisciplinary Plan of Care that may contain components documented by all disciplines (PT, OT, and ST.) PT Problem 1 PT Problem #1 Knowledge Deficit PT Goal 1 Goal / Goal Update [place] with HEP 10/11/24 Re-set goal secondary to new injury Target Visit 4 Progress Met PT Goal 2 Goal / Goal Update Report no [place] greater than 2/10 for 2 consecutive weeks 11/22/24: Progressing. Still having some pain limitation. Target Visit 40 Progress Partially Met PT Problem 2 PT Problem #2 Impaired Range of Motion PT Goal 1 Goal / Goal Update 1. Achieve 170 degrees of right shoulder passive ROM 2. Achieve 80 degrees of right shoulder external rotation ROM 11/22/24: Nearing flexion goals. External goal met Target Visit 40 Progress Partially Met PT Problem 3 PT Problem #3 Impaired Strength PT Goal 1 Goal / Goal Update Patient will progress to strengthening activity for chcf shoulder stability and functional reach per protocol allowance Target Visit 40 Progress Met PT Goal 2 Goal / Goal Update 1. Improve R shoulder external rotation strength to 4+/5 to improve capsular stability 2. Improve R shoulder flexion strength to 4/5 to improve lifting ability per protocol allowance 11/22/24: Updated Target Visit 40 Progress Partially Met
--- NOTE | 2024-11-22 15:35 | PTOPPROG ---
Assessment and note entered by Dago Lane, PT Evaluation Information Assessment Status Progress Diagnosis Right rotator cuff repair ICD-10 Condition Codes (PT) Pain in right shoulder M25.511 Onset 06/13/24 Subjective Information Reports that overall she has been seeing progress. She has not had much strengthening as she was limited due to her re-injury and fracture. MD released her for strengthening with 5# limitation. She has been able to wash her hair with both hands at this time and she was not able to since March. Still feels extremely weak in the shoulder with limited functional reach and object lifting. Would like to continue therapy to work on this. Assessment PT Clinical Summary Patient has seen objective improvement in shoulder mobility indicated by improve ROM measures. She continues to show significant weakness as we are objectively to where we were prior to the secondary injury in which we had just initiated strengthening. Patient will benefit form continuation of therapy emphasizing shoulder strength and functional mobility. Plan of Care Interventions Electrical Stimulation,Manual Lymph Drainage, Manual Therapy,Neuro Re-education,Therapeutic Activities,Therapeutic Exercise PT Services Indicated Yes Treatment Frequency and 1-2x/week for 8 visits Duration These treatments will address the objective and functional deficits as defined above. The patient will be advanced safely and appropriately in order for the patient to progress towards his/her prior level of function. Additional exercises will be introduced and as well as a comprehensive home exercise program upon discharge, if needed, ?to ensure carryover of functional gains achieved in the clinic. This treatment plan has been reviewed and agreement upon by the patient.
--- NOTE | 2024-12-10 14:18 | PCPTNOTE ---
pt used online system to request to reschedule todays appt, no other appts available at this time
--- NOTE | 2024-12-24 16:55 | OPREHPOC ---
Outpatient Therapy Plan of Care This is a Multidisciplinary Plan of Care that may contain components documented by all disciplines (PT, OT, and ST.) PT Problem 1 PT Problem #1 Knowledge Deficit PT Goal 1 Goal / Goal Update [place] with HEP 10/11/24 Re-set goal secondary to new injury Target Visit 4 Progress Met PT Goal 2 Goal / Goal Update Report no [place] greater than 2/10 for 2 consecutive weeks 11/22/24: Progressing. Still having some pain limitation. Target Visit 48 Progress Partially Met PT Problem 2 PT Problem #2 Impaired Range of Motion PT Goal 1 Goal / Goal Update 1. Achieve 170 degrees of right shoulder passive ROM 2. Achieve 80 degrees of right shoulder external rotation ROM 11/22/24: Nearing flexion goals. 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 Improve R shoulder external rotation strength to 4+/5 to improve capsular stability 2. Improve R shoulder flexion strength to 4/5 to improve lifting ability per protocol allowance 11/22/24: Updated Target Visit 48 Progress Partially Met
--- NOTE | 2024-12-24 16:55 | PTOPPROG ---
Assessment and note entered by Dago Lane, PT Evaluation Information Assessment Status Progress Diagnosis Right rotator cuff repair ICD-10 Condition Codes (PT) Pain in right shoulder M25.511 Onset 06/13/24 Subjective Information . Assessment PT Clinical Summary Patient has made excellent shoulder ROM progress at this time and is near full functional capability. Continues to show substantial weakness resulting from multiple injuries and restricted strengthening allowance per protocol. Will continue to benefit from skilled therapy to address these deficits. Plan of Care Interventions Electrical Stimulation,Manual Lymph Drainage, Manual Therapy,Neuro Re-education,Therapeutic Activities,Therapeutic Exercise PT Services Indicated Yes Treatment Frequency and 1x/week for 8 visits Duration These treatments will address the objective and functional deficits as defined above. The patient will be advanced safely and appropriately in order for the patient to progress towards his/her prior level of function. Additional exercises will be introduced and as well as a comprehensive home exercise program upon discharge, if needed, ?to ensure carryover of functional gains achieved in the clinic. This treatment plan has been reviewed and agreement upon by the patient.
--- NOTE | 2024-12-24 16:58 | PTOPPROG ---
Assessment and note entered by Dago Lane, PT Evaluation Information Assessment Status Progress Diagnosis Right rotator cuff repair ICD-10 Condition Codes (PT) Pain in right shoulder M25.511 Onset 06/13/24 Subjective Information Reports that she is still struggling with end range motion, strength, and pain occasionally. Overall she has felt progress regardless of being limited in strengthening allowance following fracture. Would like to continue with progressive supervised strengthening as she increased muscle building to improve gross shoulder function. Assessment PT Clinical Summary Patient has made excellent shoulder ROM progress at this time and is near full functional capability. Continues to show substantial weakness resulting from multiple injuries and restricted strengthening allowance per protocol. Will continue to benefit from skilled therapy to address these deficits. Plan of Care Interventions Electrical Stimulation,Manual Lymph Drainage, Manual Therapy,Neuro Re-education,Therapeutic Activities,Therapeutic Exercise PT Services Indicated Yes Treatment Frequency and 1x/week for 8 visits Duration These treatments will address the objective and functional deficits as defined above. The patient will be advanced safely and appropriately in order for the patient to progress towards his/her prior level of function. Additional exercises will be introduced and as well as a comprehensive home exercise program upon discharge, if needed, ?to ensure carryover of functional gains achieved in the clinic. This treatment plan has been reviewed and agreement upon by the patient.
== END 2025-01-09 23:59 | disposition home or self-care (01) ==
LOC: ANHGOSHPT 14:30
PROVIDERS: PCP Family Medicine; Visit Provider Orthopaedic Surgery
DX: S46.011D Strain of muscle(s) and tendon(s) of the rotator cuff of right shoulder, subsequent encounter (principal); S42.201A Unspecified fracture of upper end of right humerus, initial encounter for closed fracture
CPT/HCPCS: 97110; 97112; 97140; 97164; 97530